=== PATIENT | female | born 1975 | race Caucasian/White ===

== ENCOUNTER 2016-10-19 18:59 | Emergency (ER) | payer SELFPAY ==
--- NOTE | 2016-10-19 19:12 | PHYS DOC ---
Past Medical History Past Medical History: No Pertinent History Past Surgical History: Tubal ligation Alcohol Use: None Drug Use: None Adult General Chief Complaint Chief Complaint: ASTHMA HPI HPI Patient is a 41 year old female presents to the emergency department with a five-day history of asthma exacerbation. She states she is using her albuterol when necessary at home without relief of symptoms. She states she has continued to use tobacco. 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 Review of Systems Review of Systems Constitutional: Denies fever or chills [] Eyes: Denies change in visual acuity, redness, or eye pain [] HENT: Denies nasal congestion or sore throat [] Respiratory: cough or shortness of breath, no wheezing [] Cardiovascular: No additional information not addressed in HPI [] GI: Denies abdominal pain, nausea, vomiting, bloody stools or diarrhea [] : Denies dysuria or hematuria [] Musculoskeletal: Denies back pain or joint pain [] Integument: Denies rash or skin lesions [] Neurologic: Denies headache, focal weakness or sensory changes [] Endocrine: Denies polyuria or polydipsia [] Current Medications Current Medications Current Medications Medications (Trade) Dose Ordered Sig/Jimmie Start Time Stop Time Status Last Admin Dose Admin Albuterol/ Ipratropium (Duoneb) 3 ml 1X ONCE 10/19/16 19:15 10/19/16 19:16 DC 10/19/16 19:22 3 ML Allergies Allergies Allergies Coded Allergies Type Severity Reaction Last Updated Verified No Known Drug Allergies 12/25/13 No Physical Exam Physical Exam Constitutional: Well developed, well nourished, no acute distress, non-toxic appearance. [] HENT: Normocephalic, atraumatic, bilateral external ears normal, oropharynx moist, no oral exudates, nose normal. [] Eyes: PERRLA, EOMI, conjunctiva normal, no discharge. [] Neck: Normal range of motion, no tenderness, supple, no stridor. [] Cardiovascular:Heart rate regular rhythm, no murmur [] Lungs & Thorax: Breath sounds diminished throughout. Inspiratory wheezes, scattered. Abdomen: Bowel sounds normal, soft, no tenderness, no masses, no pulsatile masses. [] Skin: Warm, dry, no erythema, no rash. [] Back: No tenderness, no CVA tenderness. [] Extremities: No tenderness, no cyanosis, no clubbing, ROM intact, no edema. [] Neurologic: Alert and oriented X 3, normal motor function, normal sensory function, no focal deficits noted. [] Current Patient Data Vital Signs Vital Signs Date Time Temp Pulse Resp B/P (MAP) Pulse Ox O2 Delivery O2 Flow Rate FiO2 10/19/16 19:23 97 Room Air 10/19/16 19:22 98.1 155 18 98.1 EKG EKG [] Radiology/Procedures Radiology/Procedures [] Course & Med Decision Making Course & Med Decision Making Pt reports she feels better, no SOA after DuoNeb. Breath Sounds clear to auscultate throughout. Pertinent Labs and Imaging studies reviewed. (See chart for details) [] Dragon Disclaimer Dragon Disclaimer This electronic medical record was generated, in whole or in part, using a voice recognition dictation system. Departure Departure Impression: Primary Impression: Asthma Disposition: HOME, SELF-CARE Condition: STABLE Referrals: NO PCP (PCP) [facility] Patient Instructions: Asthma, Adult Scripts Albuterol Sulfate (PROAIR HFA INHALER) 8.5 Gm Hfa.aer.ad 1 PUFF INH PRN Q6HRS Y for SHORTNESS OF BREATH, #1 INHALER 0 Refills Prov: SHARIF MCKNIGHT APRN 10/19/16 Prednisone (PREDNISONE) 20 Mg Tablet 1 TAB PO DAILY, #5 TAB Prov: SHARIF MCKNIGHT APRN 10/19/16 Problem Qualifiers Primary Impression: Asthma Asthma severity: mild intermittent Asthma complication type: with acute exacerbation Qualified Codes: J45.21 - Mild intermittent asthma with (acute) exacerbation SHARIF MCKNIGHT APRN Oct 19, 2016 19:12
[2016-10-19] MEDS ORDERED: IPRATRPIUM/ALBUTEROL 0.5/2.5MG 3 ML NEBU. NEB ONE (19:15)
[2016-10-19 19:22] VITALS: BP 125/66
[2016-10-19] MEDS ORDERED: PROAIR HFA8.5 GM INH (19:24)
[2016-10-19] MEDS ORDERED: PRED20TA PO (19:24)
== END 2016-10-19 19:58 | disposition home or self-care (01) ==
LOC: ER 18:59
DX: J45.21 Mild intermittent asthma with (acute) exacerbation (principal); F17.200 Nicotine dependence, unspecified, uncomplicated; Z98.51 Tubal ligation status; Z79.899 Other long term (current) drug therapy
CPT/HCPCS: 94640; 99283; J7620

== ENCOUNTER 2016-11-04 18:36 | Emergency (ER) | payer SELFPAY ==
[~2016-11-04] VITALS: Ht 167.6 cm; Wt 63.5 kg
[~2016-11-04 18:36] MED LIST: PRED20TA PO; PROAIR HFA8.5 GM INH
[2016-11-04] MEDS ORDERED: BENZONATATE 100 MG CAPSULE. PO ONE (19:30)
[2016-11-04] MEDS ORDERED: IPRATRPIUM/ALBUTEROL 0.5/2.5MG 3 ML NEBU. NEB ONE (19:30)
[2016-11-04] MEDS ORDERED: DEXAMETHASONE SOD PHOS 20 MG/5 ML VIAL. IM ONE (19:30)
--- NOTE | 2016-11-04 19:34 | PHYS DOC ---
Past Medical History Past Medical History: Asthma Past Surgical History: Tubal ligation Additional Past Surgical Histo: L ANKLE FX Alcohol Use: Occasionally Drug Use: Marijuana Adult General Chief Complaint Chief Complaint: ASTHMA HPI HPI Patient is a 41 year old female with a history of asthma and smoking who presents today complaining of coughing which shortness of breath due to her asthma as well as wheezing that began yesterday. 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 She states they don't like to change the oil they use for deep frying which creates a smoky working environment. Patient states she went to work yesterday and developed asthma symptoms including coughing, shortness of breath and wheezing due to smoke. Patient states she was seen in the ED October 20 which is approximately 2 weeks ago for the same complaint with the same cause. She states she was discharged at home with a short course of prednisone and breathing treatments. Review of Systems Review of Systems Constitutional: Denies fever or chills [] Eyes: Denies change in visual acuity, redness, or eye pain [] HENT: Denies nasal congestion or sore throat [] Respiratory: wheezing,cough and shortness of breath [] Cardiovascular: No additional information not addressed in HPI [] GI: Denies abdominal pain, nausea, vomiting, bloody stools or diarrhea [] : Denies dysuria or hematuria [] Musculoskeletal: Denies back pain or joint pain [] Integument: Denies rash or skin lesions [] Neurologic: Denies headache, focal weakness or sensory changes [] Endocrine: Denies polyuria or polydipsia [] Current Medications Current Medications Current Medications Medications (Trade) Dose Ordered Sig/Jimmie Start Time Stop Time Status Last Admin Dose Admin Albuterol/ Ipratropium (Duoneb) 3 ml 1X ONCE 11/04/16 19:30 11/04/16 19:31 DC 11/04/16 19:30 3 ML Benzonatate (Tessalon Perle) 100 mg 1X ONCE 11/04/16 19:30 11/04/16 19:31 DC 11/04/16 19:55 100 MG Dexamethasone Sodium Phosphate (Decadron) 10 mg 1X ONCE 11/04/16 19:30 11/04/16 19:31 DC 11/04/16 19:56 10 MG Allergies Allergies Allergies Coded Allergies Type Severity Reaction Last Updated Verified No Known Drug Allergies 12/25/13 No Physical Exam Physical Exam Constitutional: Well developed, well nourished, no acute distress, non-toxic appearance. [] HENT: Normocephalic, atraumatic, bilateral external ears normal, oropharynx moist, no oral exudates, nose normal. [] Eyes: PERRLA, EOMI, conjunctiva normal, no discharge. [] Neck: Normal range of motion, no tenderness, supple, no stridor. [] Cardiovascular:Heart rate regular rhythm, no murmur [] Lungs & Thorax: Diffuse wheezing to posterior and anterior lung bases, patient is coughing actively in the ED Abdomen: Bowel sounds normal, soft, no tenderness, no masses, no pulsatile masses. [] Skin: Warm, dry, no erythema, no rash. [] Back: No tenderness, no CVA tenderness. [] Extremities: No tenderness, no cyanosis, no clubbing, ROM intact, no edema. [] Neurologic: Alert and oriented X 3, normal motor function, normal sensory function, no focal deficits noted. [] Psychologic: Affect normal, judgement normal, mood normal. [] Current Patient Data Vital Signs Vital Signs Date Time Temp Pulse Resp B/P (MAP) Pulse Ox O2 Delivery O2 Flow Rate FiO2 11/04/16 19:49 100 Room Air 11/04/16 19:39 139/75 (96) 11/04/16 19:20 98.2 106 20 98.2 EKG EKG [] Radiology/Procedures Radiology/Procedures [] Course & Med Decision Making Course & Med Decision Making Pertinent Labs and Imaging studies reviewed. 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 Patient was in the ED 2 weeks ago for the same complaint. Patient was wheezing and actively coughing on arrival to the ED. She was given and went into treatment prednisone and Tessalon Perles her coughing cleared up and lungs are clear as well she even states she feels much better, chest xray interpreted by Dr. Gilbert was negative for any acute findings. She was discharged with a breathing treatment and a tapered dose of prednisone as well as Tessalon Perles. We recommended smoking cessation. Recommended following up with the primary care doctor in 1-2 weeks. Dragon Disclaimer Dragon Disclaimer This electronic medical record was generated, in whole or in part, using a voice recognition dictation system. Departure Departure Impression: Primary Impression: Asthma exacerbation Additional Impression: Smoking addiction Disposition: 01 HOME, SELF-CARE Condition: STABLE Referrals: NO PCP (PCP) Follow-up with your doctor in 1-2 weeks Patient Instructions: Asthma, Adult, Smoking Cessation Additional Instructions: You were seen for asthma exacerbation. Consider smoking cessation. Use the prescribed medicines as ordered. Follow-up with your doctor in the next 7 days. Come back to the ED symptoms worsen. Scripts Albuterol Sulfate (Proair Respiclick) 90 Mcg Aer.pow.ba 1 PUFF IH PRN Q6HRS Y for SHORTNESS OF BREATH, #1 INHALER Prov: ESTHER ESTRADA APRN 11/04/16 Benzonatate (TESSALON PERLE) 100 Mg Capsule 1 CAP PO TID, #30 CAP Prov: ESTHER ESTRADA APRN 11/04/16 Prednisone (PREDNISONE) 10 Mg Tablet 10 MG PO UD for PREDNISONE TAPER, #39 TAB 0 Refills Take 3 tablets by mouth twice a day for 3 days, then take 2 tablets by mouth twice a day for 3 days, then take 1 tablet by mouth twice a day for 3 days, then take 1 tablet by mouth daily x 3 days, then stop. Prov: ESTHER ESTRADA APRN 11/04/16 Problem Qualifiers ESTHER ESTRADA APRN Nov 04, 2016 19:34
[2016-11-04 19:39] VITALS: BP 139/75
[2016-11-04] MEDS ORDERED: BENZ100C PO (20:21)
[2016-11-04] MEDS ORDERED: PROAIR RESPICL90 MCG IH (20:21)
[2016-11-04] MEDS ORDERED: PRED-220 PO (20:21)
--- NOTE | 2016-11-05 08:49 | RAD ---
Indication: Cough and short of breath for a week. Asthma Technique: Two-view chest radiograph was obtained. Comparison is from December 25, 2013. Findings: The lungs are clear. The cardiopulmonary silhouette is within normal limits. There is no pleural effusion. There are old right rib fractures. Impression: No acute thoracic findings.
== END 2016-11-04 20:22 | disposition home or self-care (01) ==
LOC: ER 18:36
DX: J45.901 Unspecified asthma with (acute) exacerbation (principal); F17.200 Nicotine dependence, unspecified, uncomplicated
CPT/HCPCS: 71020; 94250; 94640; 96372; 99284; J1100; J7620

== ENCOUNTER 2016-11-16 18:33 | Emergency (ER) | payer SELFPAY ==
[~2016-11-16] VITALS: Ht 167.6 cm; Wt 63.5 kg
[~2016-11-16 18:33] MED LIST changes: +BENZ100C PO; +PRED-220 PO; +PROAIR RESPICL90 MCG IH
--- NOTE | 2016-11-16 19:14 | PHYS DOC ---
Past Medical History Past Medical History: Asthma Past Surgical History: Tubal ligation Additional Past Surgical Histo: L ANKLE FX Alcohol Use: Occasionally Drug Use: Marijuana Adult General Chief Complaint Chief Complaint: LOWER EXT PAIN HPI HPI Patient is a 41 year old [female that presents to the emergency department with complaints of anterior thigh cramping for 1 day. She states the discomfort began yesterday. She has no known injury. She states she does not drink a lot of water and has not been drinking water. She does state that she is urinating. Review of Systems Review of Systems Constitutional: Denies fever or chills [] Eyes: Denies change in visual acuity, redness, or eye pain [] HENT: Denies nasal congestion or sore throat [] Respiratory: Denies cough or shortness of breath [] Cardiovascular: No additional information not addressed in HPI [] GI: Denies abdominal pain, nausea, vomiting, bloody stools or diarrhea [] : Denies dysuria or hematuria [] Musculoskeletal: Muscle cramps Integument: Denies rash or skin lesions [] Neurologic: Denies headache, focal weakness or sensory changes [] Endocrine: Denies polyuria or polydipsia [] Current Medications Current Medications Current Medications Medications (Trade) Dose Ordered Sig/Jimmie Start Time Stop Time Status Last Admin Dose Admin Ketorolac Tromethamine (Toradol Im) 60 mg 1X ONCE 11/16/16 20:00 11/16/16 20:01 DC 11/16/16 19:55 60 MG Allergies Allergies Allergies Coded Allergies Type Severity Reaction Last Updated Verified No Known Drug Allergies 12/25/13 No Physical Exam Physical Exam Constitutional: Well developed, well nourished, no acute distress, non-toxic appearance. [] HENT: Normocephalic, atraumatic, bilateral external ears normal, just membranes dry, no oral exudates, nose normal. [] Eyes: PERRLA, EOMI, conjunctiva normal, no discharge. [] Neck: Normal range of motion, no tenderness, supple, no stridor. [] Cardiovascular:Heart rate regular rhythm, no murmur [] Lungs & Thorax: Bilateral breath sounds clear to auscultation [] Abdomen: Bowel sounds normal, soft, no tenderness, no masses, no pulsatile masses. [] Skin: Warm, dry, no erythema, no rash. [] Back: No tenderness, no CVA tenderness. [] Extremities: No tenderness, no cyanosis, no clubbing, ROM intact, no edema, bilateral calves are supple and nontender. Negative Homans sign. [] Neurologic: Alert and oriented X 3, normal motor function, normal sensory function, no focal deficits noted. [] Psychologic: Affect normal, judgement normal, mood normal. [] Current Patient Data Vital Signs Vital Signs Date Time Temp Pulse Resp B/P (MAP) Pulse Ox O2 Delivery O2 Flow Rate FiO2 11/16/16 19:16 127/60 (82) 11/16/16 19:05 98.4 90 18 100 Room Air 98.4 Lab Values Laboratory Tests Test 11/16/16 19:26 11/16/16 19:50 White Blood Count 12.3 x10^3/uL (4.0-11.0) H Red Blood Count 4.70 x10^6/uL (3.50-5.40) Hemoglobin 10.5 g/dL (12.0-15.5) L Hematocrit 33.4 % (36.0-47.0) L Mean Corpuscular Volume 71 fL (79-100) L Mean Corpuscular Hemoglobin 22 pg (25-35) L Mean Corpuscular Hemoglobin Concent 31 g/dL (31-37) Red Cell Distribution Width 20.7 % (11.5-14.5) H Platelet Count 458 x10^3/uL (140-400) H Neutrophils (%) (Auto) 62 % (31-73) Lymphocytes (%) (Auto) 24 % (24-48) Monocytes (%) (Auto) 12 % (0-9) H Eosinophils (%) (Auto) 3 % (0-3) Basophils (%) (Auto) 1 % (0-3) Neutrophils # (Auto) 7.5 x10^3uL (1.8-7.7) Lymphocytes # (Auto) 2.9 x10^3/uL (1.0-4.8) Monocytes # (Auto) 1.4 x10^3/uL (0.0-1.1) H Eosinophils # (Auto) 0.3 x10^3/uL (0.0-0.7) Basophils # (Auto) 0.1 x10^3/uL (0.0-0.2) Platelet Estimate Increased (ADEQUATE) Hypochromasia Mod Microcytosis Mod Sodium Level 135 mmol/L (136-145) L Potassium Level 4.7 mmol/L (3.5-5.1) Chloride Level 99 mmol/L (98-107) Carbon Dioxide Level 28 mmol/L (21-32) Anion Gap 8 (6-14) Blood Urea Nitrogen 8 mg/dL (7-20) Creatinine 0.6 mg/dL (0.6-1.0) Estimated GFR (Cockcroft-Gault) 109.6 BUN/Creatinine Ratio 13 (6-20) Glucose Level 95 mg/dL (70-99) Calcium Level 9.0 mg/dL (8.5-10.1) Total Bilirubin 0.4 mg/dL (0.2-1.0) Aspartate Amino Transferase (AST) 35 U/L (15-37) Alanine Aminotransferase (ALT) 64 U/L (14-59) H Alkaline Phosphatase 72 U/L (46-116) Total Protein 7.0 g/dL (6.4-8.2) Albumin 3.5 g/dL (3.4-5.0) Albumin/Globulin Ratio 1.0 (1.0-1.7) Urine Collection Type Unknown Urine Color Yellow Urine Clarity Clear Urine pH 6.5 Urine Specific [place] 1.015 Urine Protein Negative mg/dL (NEG-TRACE) Urine Glucose (UA) Negative mg/dL (NEG) Urine Ketones (Stick) Negative mg/dL (NEG) Urine Blood Negative (NEG) Urine Nitrite Negative (NEG) Urine Bilirubin Negative (NEG) Urine Urobilinogen Dipstick 0.2 mg/dL (0.2 mg/dL) Urine Leukocyte Esterase Negative (NEG) Urine RBC 0 /HPF (0-2) Urine WBC Occ /HPF (0-4) Urine Squamous Epithelial Cells Many /LPF Urine Bacteria Few /HPF (0-FEW) Urine Mucus Mod /LPF Urine Yeast Present /HPF Laboratory Tests 11/16/16 19:26 Laboratory Tests 11/16/16 19:26 EKG EKG [] Radiology/Procedures Radiology/Procedures [] Course & Med Decision Making Course & Med Decision Making Pertinent Labs and Imaging studies reviewed. (See chart for details) [] Evaluation: Patient reports that she feels significantly better, no complaints of muscle cramping. I did advise her of her lab results. She is advised to increase her fluid intake, stop smoking. Patient verbalizes understanding and is agreeable to plan. She's return to the emergency Department for new symptoms or concerns or worsening of current condition. Shana Disclaimer Dayanaon Disclaimer This electronic medical record was generated, in whole or in part, using a voice recognition dictation system. Departure Departure Impression: Primary Impression: Muscle cramps Additional Impression: Dehydration, mild Disposition: 01 HOME, SELF-CARE Condition: STABLE Referrals: NO PCP (PCP) [facility] Patient Instructions: Dehydration, Adult Additional Instructions: Increase fluid intake, water alternate tolerated. Return to the emergency Department for new symptoms or concerns or worsening of current condition. Problem Qualifiers SHARIF MCKNIGHT BUDGET REPORT CLERK Nov 16, 2016 19:14
[2016-11-16 19:16] VITALS: BP 127/60
[2016-11-16 19:44] LABS: BASO # 0.1 x10^3/uL (0.0-0.2); BASO % 1 % (0-3); EOS % 3 % (0-3); HEMATOCRIT 33.4 % (36.0-47.0); HEMOGLOBIN 10.5 g/dL (12.0-15.5); LYMPH # 2.9 x10^3/uL (1.0-4.8); LYMPH % 24 % (24-48); MEAN CORPUSCULAR HEMOGLOBIN 22 pg (25-35); MEAN CORPUSCULAR HGB CONC 31 g/dL (31-37); MEAN CORPUSCULAR VOLUME 71 fL (79-100); MONO % 12 % (0-9); NEUT % 62 % (31-73); PLATELET COUNT 458 x10^3/uL (140-400); RED CELL DISTRIBUTION WIDTH 20.7 % (11.5-14.5); WHITE BLOOD COUNT 12.3 x10^3/uL (4.0-11.0)
[2016-11-16 19:48] LABS: CREATININE 0.6 mg/dL (0.6-1.0); GFR 109.6; POTASSIUM 4.7 mmol/L (3.5-5.1)
[2016-11-16 19:59] LABS: BILIRUBIN,URINE NEGATIVE (NEG); GLUCOSE,URINE NEGATIVE (NEG); NITRITE,URINE NEGATIVE (NEG); PH,URINE 6.5; PROTEIN,URINE NEGATIVE (NEG-TRACE); UROBILINOGEN,URINE 0.2 mg/dL (0.2 mg/dL)
[2016-11-16] MEDS ORDERED: KETOROLAC TROMETHAMINE 60 MG/2 ML INJ. IM ONE (20:00)
[2016-11-16 20:07] LABS: ALBUMIN 3.5 g/dL (3.4-5.0); TOTAL BILIRUBIN 0.4 mg/dL (0.2-1.0)
[2016-11-16 20:08] LABS: BACTERIA,URINE FEW /HPF (0-FEW); RBC,URINE 0 /HPF (0-2); SQUAMOUS EPITHELIAL CELL,UR MANY /LPF; WBC,URINE OCC /HPF (0-4); YEAST,URINE PRESENT /HPF
[2016-11-16 20:14] LABS: HYPOCHROMIA MOD; MICROCYTOSIS MOD; PLT ESTIMATE INCREASED (ADEQUATE)
== END 2016-11-16 20:52 | disposition home or self-care (01) ==
LOC: ER 18:33
DX: R25.2 Cramp and spasm (principal); E86.0 Dehydration; J45.909 Unspecified asthma, uncomplicated
CPT/HCPCS: 36415; 80053; 81001; 85025; 96372; 99284; J1885

== ENCOUNTER 2016-12-27 14:10 | Inpatient (IN) | payer SELFPAY ==
[~2016-12-27] VITALS: Ht 167.6 cm; Wt 59.2 kg
[2016-12-27] VITALS (11 sets, daily range): BP systolic 108–141; BP diastolic 55–80
--- NOTE | 2016-12-27 14:16 | PHYS DOC ---
Past Medical History Past Medical History: No Pertinent History, Asthma Past Surgical History: Tubal ligation Additional Past Surgical Histo: L ANKLE FX Alcohol Use: Occasionally Drug Use: Marijuana Adult General Chief Complaint Chief Complaint: CHEST PAIN HPI HPI Patient is a 41 year old female who presents with substernal chest pain. She states this started partially hour ago. She states she feels somewhat short of breath and nauseated. She states she's had an episode this over the last couple days since, came and gone. She does smoke marijuana and cigarettes. She states she does have a family history of her mom having a heart attack when she was 36. She denies having any heart attacks in the past. Review of Systems Review of Systems Constitutional: Denies fever or chills [] Eyes: Denies change in visual acuity, redness, or eye pain [] HENT: Denies nasal congestion or sore throat [] Respiratory: Denies cough or shortness of breath [] Cardiovascular: No additional information not addressed in HPI [] GI: Denies abdominal pain, nausea, vomiting, bloody stools or diarrhea [] : Denies dysuria or hematuria [] Musculoskeletal: Denies back pain or joint pain [] Integument: Denies rash or skin lesions [] Neurologic: Denies headache, focal weakness or sensory changes [] Endocrine: Denies polyuria or polydipsia [] Current Medications Current Medications Current Medications Medications (Trade) Dose Ordered Sig/Jimmie Start Time Stop Time Status Last Admin Dose Admin Aspirin (Shari Aspirin) 325 mg 1X ONCE 12/27/16 14:30 12/27/16 14:31 Cancel Heparin Sodium (Porcine) (Heparin Sodium) 4,000 unit 1X ONCE 12/27/16 14:30 12/27/16 14:35 DC 12/27/16 14:38 4,000 UNIT Heparin Sodium/ Dextrose 500 ml @ 0 mls/hr CONT PRN 12/27/16 14:30 Heparin Sodium/ Sodium Chloride 500 ml @ As Directed STK-MED ONCE 12/27/16 14:30 12/27/16 14:31 DC Iodixanol (Visipaque 320) 100 ml STK-MED ONCE 12/27/16 14:30 12/27/16 14:31 DC Lidocaine HCl 20 ml STK-MED ONCE 12/27/16 14:30 12/27/16 14:31 DC Allergies Allergies Allergies Coded Allergies Type Severity Reaction Last Updated Verified No Known Drug Allergies 12/25/13 No Physical Exam Physical Exam Constitutional: Well developed, well nourished, no acute distress, non-toxic appearance. [] HENT: Normocephalic, atraumatic, bilateral external ears normal, oropharynx moist, no oral exudates, nose normal. [] Eyes: PERRLA, EOMI, conjunctiva normal, no discharge. [] Neck: Normal range of motion, no tenderness, supple, no stridor. [] Cardiovascular:Heart rate regular rhythm, no murmur [] Lungs & Thorax: Bilateral breath sounds clear to auscultation [] Abdomen: Bowel sounds normal, soft, no tenderness, no masses, no pulsatile masses. [] Skin: Warm, dry, no erythema, no rash. [] Back: No tenderness, no CVA tenderness. [] Extremities: No tenderness, no cyanosis, no clubbing, ROM intact, no edema. [] Neurologic: Alert and oriented X 3, normal motor function, normal sensory function, no focal deficits noted. [] Psychologic: Affect normal, judgement normal, mood normal. [] Current Patient Data Vital Signs Vital Signs Date Time Temp Pulse Resp B/P (MAP) Pulse Ox O2 Delivery O2 Flow Rate FiO2 12/27/16 14:23 76 20 108/70 (83) 100 Room Air 12/27/16 14:20 97.7 97.7 Lab Values Laboratory Tests Test 12/27/16 14:20 White Blood Count 8.7 x10^3/uL (4.0-11.0) Red Blood Count 4.60 x10^6/uL (3.50-5.40) Hemoglobin 9.9 g/dL (12.0-15.5) L Hematocrit 32.7 % (36.0-47.0) L Mean Corpuscular Volume 71 fL (79-100) L Mean Corpuscular Hemoglobin 22 pg (25-35) L Mean Corpuscular Hemoglobin Concent 30 g/dL (31-37) L Red Cell Distribution Width 19.9 % (11.5-14.5) H Platelet Count 526 x10^3/uL (140-400) H Neutrophils (%) (Auto) 43 % (31-73) Lymphocytes (%) (Auto) 40 % (24-48) Monocytes (%) (Auto) 12 % (0-9) H Eosinophils (%) (Auto) 4 % (0-3) H Basophils (%) (Auto) 2 % (0-3) Neutrophils # (Auto) 3.7 x10^3uL (1.8-7.7) Lymphocytes # (Auto) 3.5 x10^3/uL (1.0-4.8) Monocytes # (Auto) 1.0 x10^3/uL (0.0-1.1) Eosinophils # (Auto) 0.3 x10^3/uL (0.0-0.7) Basophils # (Auto) 0.1 x10^3/uL (0.0-0.2) Platelet Estimate Pending Prothrombin Time 11.8 SEC (11.7-14.0) Prothrombin Time INR 0.9 (0.8-1.1) Sodium Level 139 mmol/L (136-145) Potassium Level 3.6 mmol/L (3.5-5.1) Chloride Level 103 mmol/L (98-107) Carbon Dioxide Level 19 mmol/L (21-32) L Anion Gap 17 (6-14) H Blood Urea Nitrogen 8 mg/dL (7-20) Creatinine 0.7 mg/dL (0.6-1.0) Estimated GFR (Cockcroft-Gault) 91.8 BUN/Creatinine Ratio 11 (6-20) Glucose Level 96 mg/dL (70-99) Calcium Level 8.7 mg/dL (8.5-10.1) Magnesium Level 1.7 mg/dL (1.8-2.4) L Total Bilirubin 0.2 mg/dL (0.2-1.0) Aspartate Amino Transferase (AST) 31 U/L (15-37) Alanine Aminotransferase (ALT) 26 U/L (14-59) Alkaline Phosphatase 108 U/L (46-116) Troponin I Quantitative 0.069 ng/mL (0.000-0.055) Total Protein 7.0 g/dL (6.4-8.2) Albumin 3.3 g/dL (3.4-5.0) L Albumin/Globulin Ratio 0.9 (1.0-1.7) L Laboratory Tests 12/27/16 14:20 Laboratory Tests 12/27/16 14:20 EKG EKG EKG shows sinus rhythm with rate of [address] elevations in 23 aVF and reciprocal changes in lead 1, aVL, V2 V3, normal axis, QTC 4 and 47 ms, as interpreted by me. Radiology/Procedures Radiology/Procedures [] Impressions: Chest pain concerning for STEMI Tobacco abuse Course & Med Decision Making Course & Med Decision Making Pertinent Labs and Imaging studies reviewed. (See chart for details) Patient was activated as a code STEMI and cardiology evaluate the patient and wanted her to go to the [facility]. 4000 units of heparin was started and the patient was given 325 aspirin prior to leaving the ER. Patient is being admitted to in stable critical condition this time. Critical care time 40 minutes of critical care time was used on this patient excluding procedures. Dragon Disclaimer Dragon Disclaimer This electronic medical record was generated, in whole or in part, using a voice recognition dictation system. Departure Departure Impression: Primary Impression: STEMI (ST elevation myocardial infarction) Disposition: ADMITTED INPATIENT Condition: STABLE Referrals: NO PCP (PCP) Problem Qualifiers Primary Impression: STEMI (ST elevation myocardial infarction) Involved coronary artery: unspecified coronary artery Qualified Codes: I21.3 - ST elevation (STEMI) myocardial infarction of unspecified site RADHA CABALLERO MD Dec 27, 2016 14:16
[2016-12-27] MEDS ORDERED: HEPARIN for IV BOLUS 10,000 UNIT/10 ML VIAL. ONE ×2 (14:27→14:52)
[2016-12-27] MEDS ORDERED: LIDOCAINE 2% 20 ML VIAL. ONE (14:30)
[2016-12-27] MEDS ORDERED: HEPARIN 25,000UTS/500ML PREMIX 500 ML IV PRN (14:30)
[2016-12-27] MEDS ORDERED: IODIXANOL 320 MG/ML 100 ML VIAL. ONE (14:30)
[2016-12-27] MEDS ORDERED: ASPIRIN 325 MG TABLET PO ONE ×2 (14:30→15:15)
[2016-12-27] MEDS ORDERED: HEPARIN for IV BOLUS 10,000 UNIT/10 ML VIAL. IV ONE ×2 (14:30→15:30)
[2016-12-27] MEDS ORDERED: fentaNYL PF VIAL 100 MCG/2 ML VIAL ONE (14:33)
[2016-12-27] MEDS ORDERED: MIDAZOLAM HCL/PF 2 MG/2 ML VIAL. ONE (14:33)
[2016-12-27 14:37] LABS: BASO # 0.1 x10^3/uL (0.0-0.2); BASO % 2 % (0-3); EOS % 4 % (0-3); HEMATOCRIT 32.7 % (36.0-47.0); HEMOGLOBIN 9.9 g/dL (12.0-15.5); LYMPH # 3.5 x10^3/uL (1.0-4.8); LYMPH % 40 % (24-48); MEAN CORPUSCULAR HEMOGLOBIN 22 pg (25-35); MEAN CORPUSCULAR HGB CONC 30 g/dL (31-37); MEAN CORPUSCULAR VOLUME 71 fL (79-100); MONO % 12 % (0-9); NEUT % 43 % (31-73); PLATELET COUNT 526 x10^3/uL (140-400); RED CELL DISTRIBUTION WIDTH 19.9 % (11.5-14.5); WHITE BLOOD COUNT 8.7 x10^3/uL (4.0-11.0)
[2016-12-27 14:41] LABS: INR 0.9 (0.8-1.1); PROTHROMBIN TIME PATIENT 11.8 SEC (11.7-14.0)
[2016-12-27 14:46] LABS: CALCIUM 8.7 mg/dL (8.5-10.1); CREATININE 0.7 mg/dL (0.6-1.0); GFR 91.8; POTASSIUM 3.6 mmol/L (3.5-5.1)
--- NOTE | 2016-12-27 14:48 | EKG ---
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
[2016-12-27 14:52] LABS: ALBUMIN 3.3 g/dL (3.4-5.0); ALBUMIN/GLOBULIN RATIO 0.9 (1.0-1.7); MAGNESIUM 1.7 mg/dL (1.8-2.4); TOTAL BILIRUBIN 0.2 mg/dL (0.2-1.0)
[2016-12-27] MEDS ORDERED: VERAPAMIL 5 MG/2 ML VIAL. ONE (14:52)
[2016-12-27] MEDS ORDERED: NITROGLYCERIN 200 MCG/2 ML SYRINGE FOR CATH/VASC LAB. ONE ×2 (14:52→15:24)
--- NOTE | 2016-12-27 14:53 | EKG ---
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
[2016-12-27] MEDS ORDERED: ONDANSETRON PF 4 MG/2 ML VIAL. IV PRN ×2 (15:00→17:00)
[2016-12-27] MEDS ORDERED: ASPIRIN CHEWABLE 81 MG TABLET. PO ONE (15:00)
[2016-12-27] MEDS ORDERED: TIROFIBAN 12.5MG -0.9% NS 250 ML IV ONE (15:09)
[2016-12-27] MEDS ORDERED: PRASUGREL 10 MG TABLET. ONE (15:24)
[2016-12-27] MEDS ORDERED: IODIXANOL 320 MG/ML 100 ML VIAL. IART ONE (15:30)
[2016-12-27] MEDS ORDERED: NITROGLYCERIN 200 MCG/2 ML SYRINGE FOR CATH/VASC LAB. IART ONE (15:30)
[2016-12-27] MEDS ORDERED: MIDAZOLAM HCL/PF 2 MG/2 ML VIAL. IV ONE (15:30)
[2016-12-27] MEDS ORDERED: ANTI-COAG MONITOR BY PHARMACY. MC PRN (15:30)
[2016-12-27] MEDS ORDERED: fentaNYL PF VIAL 100 MCG/2 ML VIAL IV ONE (15:30)
[2016-12-27] MEDS ORDERED: TIROFIBAN 12.5MG -0.9% NS 250 ML IV PRN (15:30)
[2016-12-27] MEDS ORDERED: LIDOCAINE 2% 20 ML VIAL. IJ ONE (15:30)
[2016-12-27] MEDS ORDERED: PRASUGREL 10 MG TABLET. PO ONE (15:30)
--- NOTE | 2016-12-27 16:11 | CONS ---
DATE OF CONSULTATION: 12/27/2016 CARDIOLOGY CONSULTATION DATE OF SERVICE: 12/27/2016 REASON FOR CONSULTATION: ST elevation IL. HISTORY OF PRESENT ILLNESS: The patient is a 41-year-old woman without any significant past medical history who presented to the ER with a worsening chest pain over the course of the last 48 hours. Her chest pain became severe and without any significant alleviating factors. Therefore, she came to the ER. In the Emergency Department, initial EKG revealed ST elevation in the inferior region and therefore STEMI team was appropriately activated. After discussion of the risks and benefits with the patient, it was decided to emergently take the patient to the tag and label cutter. PAST MEDICAL HISTORY: Tobacco abuse. FAMILY HISTORY: Notable for early coronary artery disease in her mother. SOCIAL HISTORY: The patient works at [employer]. She smokes 1 pack a day. Denies any alcohol or illicit drug use except for marijuana. REVIEW OF SYSTEMS: Negative for 10 out of 14 systems reviewed, unless otherwise mentioned above in HPI. ALLERGIES: No known drug allergies. PHYSICAL EXAMINATION: VITAL SIGNS: Afebrile, heart rate 72, blood pressure 123/90, respiratory rate 16, pulse ox 94% on room air. GENERAL: She is alert and oriented, but in moderate distress related to her anxiety and pain in her chest. HEAD AND NECK: Unremarkable. HEART: Regular rate and rhythm without murmurs, rubs or gallops. LUNGS: Clear to auscultation bilaterally. ABDOMEN: Soft, nontender, nondistended. EXTREMITIES: No clubbing, cyanosis or edema. NEUROLOGIC: No focal deficits. MUSCULOSKELETAL: No trauma. LABORATORY DATA: Troponin was minimally elevated at 0.069. Other diagnostic studies are currently pending. EKG reveals inferior ST elevations approximately 2 mm with reciprocal posterior changes. Diagnostic cardiac catheterization revealed an 80% mid RCA stenosis. The left coronary system was unremarkable. The RCA was then stented with a 3.5 x 18 mm bare-metal stent postdilated with a 3.75 mm balloon. IMPRESSION: 1. Transient ST elevation myocardial infarction secondary to mid RCA stenosis. 2. Tobacco abuse. RECOMMENDATIONS: 1. Successful PCI of the mid RCA has been completed. Continue aspirin, prasugrel 10 mg daily. The patient will be provided with a free 30-day card. 2. Risk factor modification. Thank you for this consultation. JERARDO SOARES MD DR: EDWARD/silas JOB#: [id number] / [id number]
[2016-12-27 16:14] LABS: ANISOCYTOSIS SLIGHT; HYPOCHROMIA MOD; MICROCYTOSIS MOD; PLT ESTIMATE INCREASED (ADEQUATE); POIKILOCYTOSIS SLIGHT
[2016-12-27] MEDS ORDERED: PROAIR HFA8.5 GM INH (16:31)
--- NOTE | 2016-12-27 16:38 | CARD ---
APPROVED REPORT Procedure(s) performed: Sedation time: 50 minutes Coronary angiography, left ventriculography and PCI of the RCA. HISTORY The patient is a 41 year-old female with a history of : tobacco history() . INDICATION The indication(s) include : STEMI (>0 to less than or equal to 6 hours). CASE TECHNIQUE During this case, Fluoroscopy and low osmolar contrast were used for imaging. PROCEDURE NARRATIVE The patient was brought electively to the cardiac catheterization lab. A timeout was performed confi rming the patient's name, date of , procedure, and site of procedure. All necessary personnel w ere wearing the appropriate protective equipment and radiation monitor devices. After explaining the risks and benefits of the procedure and alternatives, informed consent was obtained. (See nursing no yaneth for medications administered). The right wrist was sterilely prepped and draped in the usual fas hion. The right wrist was infiltrated with 1 mL of 2% lidocaine for subcutaneous anesthesia. Two at tempts at radial artery access were unsuccessful due to small vessel size. Next, access was obtained via the modified seldinger technique in the [facility]. A 6 F sheath was inserted into the right femoral a rtery without difficulty. Right and left coronary angiography was performed using a 6Fr JR4 and JL4 catheters. HEMODYNAMICS: LVEDP 10 mm Hg No gradient on LV to aortic pullback. LEFT VENTRICULOGRAM: EF 55% Anterobasal: Normal. Anterolateral: Normal Apical: Normal Diaphragmatic: Normal Posterobasal: Grossly normal, with short focal segment akinesis. CORONARY ANGIOGRAPHY: LM is a large caliber very short vessel with normal angiographic appearance. LAD is a large caliber vessel with normal angiographic appearance. D1 is a moderate caliber vessel with normal angiographic appearance. LCx is a moderate caliber non-dominant vessel with normal angiographic appearance. OM1 is a moderate caliber vessel with normal angiographic appearance. RCA is a large caliber dominant vessel with a focal mid 80% stenosis. Post-NTG, there was no signific ant change to the lesion size/severity. RPDA and RPL are moderate caliber vessels with normal angiographic appearance. INTERVENTIONAL TECHNIQUE: Anticoagulation: Heparin/Tirofiban Equipment: Prowater wire, 3.0/12 mm balloon, 3.5/18 mm stent, 3.75mm NC balloon, JR4 guide The lesion was wired easily and angioplastied and stented as noted with above equipment. Left ventricular end diastolic pressure was obtained with a pigtail catheter and pullback was perform ed after left ventriculography. All catheter exchanges and advancements were performed over a guidew diana. At case completion the right femoral sheath was removed and hemostasis was achieved with an Ang ioseal device. The patient received 60mg of Effient at case completion. Conclusion 1. Inferior STEMI 2. Successful PCI with a 3.5/18 bare metal stent, post-dilated with a 3.75mm NC balloon. Recommendations ASA 81mg daily indefinitely Prasugrel 10mg daily Lovastatin therapy travel services professional consult for insurance issues.
--- NOTE | 2016-12-27 16:48 | PDOC1 ---
History and Physical Date of Admission Date of Admission 12/27/16 Identification/Chief Complaint Chief Complaint chest pain Problems: Source Source: Chart review, Patient History of Present Illness History of Present Illness HPI HPI Patient is a 41 year old female who presents with substernal chest pain Today. pt has no pcp, no PMH, not taking home meds, but has very strong FMH with mother and grandparents diagnosed with [place] at young age, smoker. 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 no fever, chills, cough. Had one time chest pain recently not seeking for help. <1PPD, smoke marijuana. drinks at least 3 times per week, 3 beers per time. ER found STEMI, got cath with 1 stent at RCA. NOW pain free. Past Medical History Past Medical History none Past Surgical History Past Surgical History: Tubal Ligation Family History Family History: Coronary Artery Disease, Heart Disease Social History Smoke: <1 pack per day ALCOHOL: heavy Drugs: Marijuana Current Problem List Problem List Problems Medical Problems: (1) STEMI (ST elevation myocardial infarction) Status: Acute Current Medications Current Medications Current Medications Medications (Trade) Dose Ordered Sig/Jimmie Start Time Stop Time Status Last Admin Dose Admin Aspirin (Shari Aspirin) 324 mg 1X ONCE 12/27/16 15:15 12/27/16 15:16 Cancel Aspirin (Children'S Aspirin) 324 mg 1X ONCE 12/27/16 15:00 12/27/16 15:01 DC 12/27/16 14:50 324 MG Fentanyl Citrate (Fentanyl 2ml Vial) 100 mcg 1X ONCE 12/27/16 15:30 12/27/16 15:32 DC 12/27/16 15:43 100 MCG Heparin Sodium (Porcine) (Heparin Sodium) 1,000 unit 1X ONCE 12/27/16 15:30 12/27/16 15:32 DC 12/27/16 15:44 1,000 UNIT Heparin Sodium/ Dextrose 500 ml @ 0 mls/hr CONT PRN 12/27/16 14:30 Heparin Sodium/ Sodium Chloride 1,000 unit 1X ONCE 12/27/16 15:30 12/27/16 15:32 DC 12/27/16 15:42 1,000 UNIT Info (Anti-Coagulation Monitoring By Pharmacy) 1 each PRN DAILY PRN 12/27/16 15:30 Iodixanol (Visipaque 320) 100 ml 1X ONCE 12/27/16 15:30 12/27/16 15:32 DC 12/27/16 15:42 116 ML Lidocaine HCl 20 ml 1X ONCE 12/27/16 15:30 12/27/16 15:32 DC 12/27/16 15:43 18 ML Midazolam HCl (Versed) 2 mg 1X ONCE 12/27/16 15:30 12/27/16 15:32 DC 12/27/16 15:43 2 MG Nitroglycerin (Nitroglycerin) 400 mcg 1X ONCE 12/27/16 15:30 12/27/16 15:32 DC 12/27/16 15:42 400 MCG Ondansetron HCl (Zofran) 4 mg PRN Q8HRS PRN 12/27/16 15:00 12/28/16 14:59 Prasugrel (Effient) 60 mg 1X ONCE 12/27/16 15:30 12/27/16 15:32 DC 12/27/16 15:42 60 MG Tirofiban/Sodium Chloride 250 ml @ 0 mls/hr CONT PRN 12/27/16 15:30 12/27/16 15:41 11.4 MLS/HR Verapamil HCl (Verapamil) 5 mg STK-MED ONCE 12/27/16 14:52 12/27/16 14:53 DC Allergies Allergies Allergies Coded Allergies Type Severity Reaction Last Updated Verified No Known Drug Allergies 12/25/13 No ROS Review of System CONSTITUTIONAL: No fever or chills EYES: No recent changes SKIN: No rash or itching CARDIOVASCULAR + chest pain, no syncope, palpitations, or edema RESPIRATORY: No SOB or cough GASTROINTESTINAL: No nausea, vomiting or abdominal pain NEUROLOGICAL: No headaches or weakness ENDOCRINE: No cold or heat intolerance GENITOURINARY: No urgency or frequency of urination MUSCULOSKELETAL: No back pain or joint pain LYMPHATICS: No enlarged lymph nodes PSYCHIATRIC: No anxiety or depression Physical Exam Physical Exam GEN.: No apparent distress. Alert and oriented. HEENT: Head is normocephalic, atraumatic NECK: Supple. LUNGS: Clear to auscultation. HEART: RRR, S1, S2 present. Peripheral pulses intact ABDOMEN: Soft, nontender. Positive bowel sounds. EXTREMITIES: Without any cyanosis. NEUROLOGIC: Normal speech, normal tone PSYCHIATRIC: Normal affect, normal mood. SKIN: No ulcerations Vitals Vitals Vital Signs Date Time Temp Pulse Resp B/P (MAP) Pulse Ox O2 Delivery O2 Flow Rate FiO2 12/27/16 15:50 75 15 99 Nasal Cannula 2.0 12/27/16 14:33 105/77 (86) 12/27/16 14:20 97.7 97.7 Labs Labs Laboratory Tests Test 12/27/16 14:20 White Blood Count 8.7 x10^3/uL (4.0-11.0) Red Blood Count 4.60 x10^6/uL (3.50-5.40) Hemoglobin 9.9 g/dL (12.0-15.5) Hematocrit 32.7 % (36.0-47.0) Mean Corpuscular Volume 71 fL (79-100) Mean Corpuscular Hemoglobin 22 pg (25-35) Mean Corpuscular Hemoglobin Concent 30 g/dL (31-37) Red Cell Distribution Width 19.9 % (11.5-14.5) Platelet Count 526 x10^3/uL (140-400) Neutrophils (%) (Auto) 43 % (31-73) Lymphocytes (%) (Auto) 40 % (24-48) Monocytes (%) (Auto) 12 % (0-9) Eosinophils (%) (Auto) 4 % (0-3) Basophils (%) (Auto) 2 % (0-3) Neutrophils # (Auto) 3.7 x10^3uL (1.8-7.7) Lymphocytes # (Auto) 3.5 x10^3/uL (1.0-4.8) Monocytes # (Auto) 1.0 x10^3/uL (0.0-1.1) Eosinophils # (Auto) 0.3 x10^3/uL (0.0-0.7) Basophils # (Auto) 0.1 x10^3/uL (0.0-0.2) Platelet Estimate Increased (ADEQUATE) Hypochromasia Mod Poikilocytosis Slight Anisocytosis Slight Microcytosis Mod Prothrombin Time 11.8 SEC (11.7-14.0) Prothromb Time International Ratio 0.9 (0.8-1.1) Sodium Level 139 mmol/L (136-145) Potassium Level 3.6 mmol/L (3.5-5.1) Chloride Level 103 mmol/L (98-107) Carbon Dioxide Level 19 mmol/L (21-32) Anion Gap 17 (6-14) Blood Urea Nitrogen 8 mg/dL (7-20) Creatinine 0.7 mg/dL (0.6-1.0) Estimated GFR (Cockcroft-Gault) 91.8 BUN/Creatinine Ratio 11 (6-20) Glucose Level 96 mg/dL (70-99) Calcium Level 8.7 mg/dL (8.5-10.1) Magnesium Level 1.7 mg/dL (1.8-2.4) Total Bilirubin 0.2 mg/dL (0.2-1.0) Aspartate Amino Transf (AST/SGOT) 31 U/L (15-37) Alanine Aminotransferase (ALT/SGPT) 26 U/L (14-59) Alkaline Phosphatase 108 U/L (46-116) Troponin I Quantitative 0.069 ng/mL (0.000-0.055) Total Protein 7.0 g/dL (6.4-8.2) Albumin 3.3 g/dL (3.4-5.0) Albumin/Globulin Ratio 0.9 (1.0-1.7) Laboratory Tests Test 12/27/16 14:20 White Blood Count 8.7 x10^3/uL (4.0-11.0) Red Blood Count 4.60 x10^6/uL (3.50-5.40) Hemoglobin 9.9 g/dL (12.0-15.5) Hematocrit 32.7 % (36.0-47.0) Mean Corpuscular Volume 71 fL (79-100) Mean Corpuscular Hemoglobin 22 pg (25-35) Mean Corpuscular Hemoglobin Concent 30 g/dL (31-37) Red Cell Distribution Width 19.9 % (11.5-14.5) Platelet Count 526 x10^3/uL (140-400) Neutrophils (%) (Auto) 43 % (31-73) Lymphocytes (%) (Auto) 40 % (24-48) Monocytes (%) (Auto) 12 % (0-9) Eosinophils (%) (Auto) 4 % (0-3) Basophils (%) (Auto) 2 % (0-3) Neutrophils # (Auto) 3.7 x10^3uL (1.8-7.7) Lymphocytes # (Auto) 3.5 x10^3/uL (1.0-4.8) Monocytes # (Auto) 1.0 x10^3/uL (0.0-1.1) Eosinophils # (Auto) 0.3 x10^3/uL (0.0-0.7) Basophils # (Auto) 0.1 x10^3/uL (0.0-0.2) Platelet Estimate Increased (ADEQUATE) Hypochromasia Mod Poikilocytosis Slight Anisocytosis Slight Microcytosis Mod Prothrombin Time 11.8 SEC (11.7-14.0) Prothromb Time International Ratio 0.9 (0.8-1.1) Sodium Level 139 mmol/L (136-145) Potassium Level 3.6 mmol/L (3.5-5.1) Chloride Level 103 mmol/L (98-107) Carbon Dioxide Level 19 mmol/L (21-32) Anion Gap 17 (6-14) Blood Urea Nitrogen 8 mg/dL (7-20) Creatinine 0.7 mg/dL (0.6-1.0) Estimated GFR (Cockcroft-Gault) 91.8 BUN/Creatinine Ratio 11 (6-20) Glucose Level 96 mg/dL (70-99) Calcium Level 8.7 mg/dL (8.5-10.1) Magnesium Level 1.7 mg/dL (1.8-2.4) Total Bilirubin 0.2 mg/dL (0.2-1.0) Aspartate Amino Transf (AST/SGOT) 31 U/L (15-37) Alanine Aminotransferase (ALT/SGPT) 26 U/L (14-59) Alkaline Phosphatase 108 U/L (46-116) Troponin I Quantitative 0.069 ng/mL (0.000-0.055) Total Protein 7.0 g/dL (6.4-8.2) Albumin 3.3 g/dL (3.4-5.0) Albumin/Globulin Ratio 0.9 (1.0-1.7) VTE Prophylaxis Ordered VTE Prophylaxis Devices: Yes VTE Pharmacological Prophylaxi: Yes Assessment/Plan Assessment/Plan chest pain, STEMI, post Cath ,1 stent at RCA tobaccoism alcoholism drug abuse with marijuana microcytic anemia mild low albumin at 3.3 plan: fu with card, will cont asa, plavix or effient tmr HR, BP lower side, maybe low dose BB check tsh, lipid panel, echo anemia work up dvt ppx tmre educated quit smoking and drinking and drug abuse. talked to family YA NIXON MD Dec 27, 2016 16:48
[2016-12-27] MEDS ORDERED: traMADol 50 MG TABLET PO PRN (17:00)
[2016-12-27] MEDS ORDERED: NON FORMULARY ITEM (Albuterol Sulfate (Proair Hfa Inhaler) 1 PUFF) INH PRN (17:00)
[2016-12-27] MEDS ORDERED: MORPHINE SULFATE 2 MG/ML DISP.SYRIN. IV PRN (17:00)
[2016-12-27] MEDS ORDERED: ACETAMINOPHEN 325 MG TABLET. PO PRN (17:00)
[2016-12-27] MEDS ORDERED: ALBUTEROL SULFATE 2.5 MG/3 ML NEBU. NEB PRN (17:00)
[2016-12-27] MEDS ORDERED: DOCUSATE SODIUM 100 MG CAPSULE. PO PRN (17:00)
[2016-12-27] MEDS ORDERED: hydrALAZINE 20 MG/ML VIAL. IVP PRN (17:00)
[2016-12-28 03:20] VITALS: BP 144/68
[2016-12-28 04:23] LABS: BASO # 0.1 x10^3/uL (0.0-0.2); BASO % 1 % (0-3); EOS % 3 % (0-3); HEMATOCRIT 31.2 % (36.0-47.0); HEMOGLOBIN 9.3 g/dL (12.0-15.5); LYMPH # 3.2 x10^3/uL (1.0-4.8); LYMPH % 27 % (24-48); MEAN CORPUSCULAR HEMOGLOBIN 21 pg (25-35); MEAN CORPUSCULAR HGB CONC 30 g/dL (31-37); MEAN CORPUSCULAR VOLUME 72 fL (79-100); MONO % 9 % (0-9); NEUT % 60 % (31-73); PLATELET COUNT 439 x10^3/uL (140-400); RED BLOOD COUNT 4.34 x10^6/uL (3.50-5.40); RED CELL DISTRIBUTION WIDTH 19.7 % (11.5-14.5); WHITE BLOOD COUNT 11.9 x10^3/uL (4.0-11.0)
[2016-12-28 04:48] LABS: % SAT IRON 5 % (15-34); CALCIUM 8.5 mg/dL (8.5-10.1); CREATININE 0.6 mg/dL (0.6-1.0); GFR 109.6; IRON,SERUM 19 ug/dL (50-170); POTASSIUM 3.9 mmol/L (3.5-5.1)
[2016-12-28 05:26] LABS: CHOLESTEROL/HDL RATIO 3.9
[2016-12-28 06:44] LABS: FOLATE 8.81 ng/ml (3.2-20.0)
[2016-12-28 07:20] VITALS: BP 140/75
[2016-12-28] MEDS ORDERED: CLOPIDOGREL BISULFATE 75 MG TABLET PO ONE (09:45)
[2016-12-28] MEDS ORDERED: ASPIRIN ENTERIC COATED 81 MG TABLET.DR. PO SCH (10:00)
[2016-12-28] MEDS ORDERED: PRASUGREL 10 MG TABLET. PO SCH (10:00)
[2016-12-28] MEDS ORDERED: METOPROLOL TART IMMED RELEASE 25 MG TABLET. PO SCH (11:00)
[2016-12-28] MEDS ORDERED: CLOPIDOGREL BISULFATE 75 MG TABLET PO SCH (11:00)
[2016-12-28 11:43] VITALS: BP 137/76
[2016-12-28] MEDS ORDERED: ASPI-612 PO (12:07)
[2016-12-28] MEDS ORDERED: CLOP75TA PO (12:07)
[2016-12-28] MEDS ORDERED: LISI-338 PO (12:14)
[2016-12-28] MEDS ORDERED: LISINOPRIL 5 MG TABLET. PO SCH (12:30)
--- NOTE | 2016-12-28 12:44 | PDOC ---
FREDY SCOTT DRUM DRIER 12/28/16 1244: CARDIO Progress Notes Date and Time Date of Service 12/28/2016 Time of Evaluation 1210 Subjective Subjective: No Chest Pain, No shortness of breath, No Palpitations, No Dizziness Vitals Vitals Vital Signs Date Time Temp Pulse Resp B/P (MAP) Pulse Ox O2 Delivery O2 Flow Rate FiO2 12/28/16 11:43 97.9 75 18 137/76 (96) 96 Room Air 97.9 12/27/16 15:50 2.0 Weight Weight [ ] Laboratory Labs Laboratory Tests Test 12/27/16 14:20 12/27/16 20:55 12/28/16 04:02 White Blood Count 8.7 x10^3/uL (4.0-11.0) 11.9 x10^3/uL (4.0-11.0) Red Blood Count 4.60 x10^6/uL (3.50-5.40) 4.34 x10^6/uL (3.50-5.40) Hemoglobin 9.9 g/dL (12.0-15.5) 9.3 g/dL (12.0-15.5) Hematocrit 32.7 % (36.0-47.0) 31.2 % (36.0-47.0) Mean Corpuscular Volume 71 fL (79-100) 72 fL (79-100) Mean Corpuscular Hemoglobin 22 pg (25-35) 21 pg (25-35) Mean Corpuscular Hemoglobin Concent 30 g/dL (31-37) 30 g/dL (31-37) Red Cell Distribution Width 19.9 % (11.5-14.5) 19.7 % (11.5-14.5) Platelet Count 526 x10^3/uL (140-400) 439 x10^3/uL (140-400) Neutrophils (%) (Auto) 43 % (31-73) 60 % (31-73) Lymphocytes (%) (Auto) 40 % (24-48) 27 % (24-48) Monocytes (%) (Auto) 12 % (0-9) 9 % (0-9) Eosinophils (%) (Auto) 4 % (0-3) 3 % (0-3) Basophils (%) (Auto) 2 % (0-3) 1 % (0-3) Neutrophils # (Auto) 3.7 x10^3uL (1.8-7.7) 7.2 x10^3uL (1.8-7.7) Lymphocytes # (Auto) 3.5 x10^3/uL (1.0-4.8) 3.2 x10^3/uL (1.0-4.8) Monocytes # (Auto) 1.0 x10^3/uL (0.0-1.1) 1.0 x10^3/uL (0.0-1.1) Eosinophils # (Auto) 0.3 x10^3/uL (0.0-0.7) 0.4 x10^3/uL (0.0-0.7) Basophils # (Auto) 0.1 x10^3/uL (0.0-0.2) 0.1 x10^3/uL (0.0-0.2) Platelet Estimate Increased (ADEQUATE) Hypochromasia Mod Poikilocytosis Slight Anisocytosis Slight Microcytosis Mod Prothrombin Time 11.8 SEC (11.7-14.0) Prothromb Time International Ratio 0.9 (0.8-1.1) Sodium Level 139 mmol/L (136-145) 138 mmol/L (136-145) Potassium Level 3.6 mmol/L (3.5-5.1) 3.9 mmol/L (3.5-5.1) Chloride Level 103 mmol/L (98-107) 103 mmol/L (98-107) Carbon Dioxide Level 19 mmol/L (21-32) 26 mmol/L (21-32) Anion Gap 17 (6-14) 9 (6-14) Blood Urea Nitrogen 8 mg/dL (7-20) 7 mg/dL (7-20) Creatinine 0.7 mg/dL (0.6-1.0) 0.6 mg/dL (0.6-1.0) Estimated GFR (Cockcroft-Gault) 91.8 109.6 BUN/Creatinine Ratio 11 (6-20) Glucose Level 96 mg/dL (70-99) 91 mg/dL (70-99) Calcium Level 8.7 mg/dL (8.5-10.1) 8.5 mg/dL (8.5-10.1) Magnesium Level 1.7 mg/dL (1.8-2.4) Total Bilirubin 0.2 mg/dL (0.2-1.0) Aspartate Amino Transf (AST/SGOT) 31 U/L (15-37) Alanine Aminotransferase (ALT/SGPT) 26 U/L (14-59) Alkaline Phosphatase 108 U/L (46-116) Troponin I Quantitative 0.069 ng/mL (0.000-0.055) 1.894 ng/mL (0.000-0.055) 6.150 ng/mL (0.000-0.055) Total Protein 7.0 g/dL (6.4-8.2) Albumin 3.3 g/dL (3.4-5.0) Albumin/Globulin Ratio 0.9 (1.0-1.7) Iron Level 19 ug/dL (50-170) Total Iron Binding Capacity 415 ug/dL (250-450) Iron Saturation 5 % (15-34) Ferritin 10 ng/mL (8-252) Triglycerides Level 83 mg/dL (0-150) Cholesterol Level 188 mg/dL (0-200) LDL Cholesterol, Calculated 123 mg/dL (0-100) VLDL Cholesterol, Calculated 17 mg/dL (0-40) Non-HDL Cholesterol Calculated 140 mg/dL (0-129) HDL Cholesterol 48 mg/dL (40-60) Cholesterol/HDL Ratio 3.9 Vitamin B12 Level 454 pg/mL (247-911) Serum Folate 8.81 ng/ml (3.2-20.0) Thyroid Stimulating Hormone (TSH) 6.210 uIU/mL (0.358-3.74) Physical Exam HEENT: Neck Supple W Full Motion Chest: Symmetric LUNGS: Clear to Auscultation Heart: S1S2, RRR (SR/SB) Abdomen: Soft N/T Extremities: No Calf Tenderness Neurology: alert, oriented, follow commands Other Exams right groin arteriotomy site intact now selling or redness, neurovascular status intact to bilateral LE Assessment Assessment 1. Inferior STEMI: S/P PCI/BMS to RCA. EF 55% 2. Subclinical hypothyroidism 3. Microcytic hypochromic anemia 4. Tobaccoism Recommendations 1. Unable to afford effient. Plavix loading dose then home with DAPT 81 mg ASA and plavix. Good Rx card given 2. Discussed compliance with meds and if financially able to follow up in office in 4 weeks 3. Home with lisinopril, lovastatin. Unable to place on BB currently due to episodes of bradycardia. BP is controlled 4. Would encourage cardiac rehab if able to afford 5. Encouraged home BP monitoring and to call our office if above or below parameters. 6. Social service was consulted regarding financial constraints. 7. Possible home late this afternoon. 8. TTE. smoking cessation JERARDO SOARES MD 12/28/16 1704: CARDIO Progress Notes Plan Plan Pt. seen and examined. Agree with above [employer] note. Continue ASA, plavix and lovastatin Ok to DC from CV perspective. FREDY SCOTT APRN Dec 28, 2016 12:44 JERARDO SOARES MD Dec 28, 2016 17:04
--- NOTE | 2016-12-28 13:52 | PDOC3 ---
Discharge Summary [facility] Date of Admission: Dec 27, 2016 Discharge Date: Dec 28, 2016 Admitting Diagnosis chest pain, STEMI, post Cath ,1 stent at RCA tobaccoism alcoholism drug abuse with marijuana microcytic anemia mild low albumin at 3.3 Problems: Final Diagnosis CONSULTS card Procedures cath Brief Hospital Course Patient is a 41 year old female who presents with substernal chest pain Today. pt has no pcp, no PMH, not taking home meds, but has very strong FMH with mother and grandparents diagnosed with [place] at young age, smoker. 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 no fever, chills, cough. Had one time chest pain recently not seeking for help. <1PPD, smoke marijuana. drinks at least 3 times per week, 3 beers per time. ER found STEMI, got cath with 1 stent at RCA. NOW pain free. pt got cath and 1 stent placement at RCA. chest pain free. dc home with asa, plavix, lovastatin, lisinopril. cannot give BB given lower side HR. dc time 35min GEN.: No apparent distress. Alert and oriented. HEENT: Head is normocephalic, atraumatic NECK: Supple. LUNGS: Clear to auscultation. HEART: RRR, S1, S2 present. Peripheral pulses intact ABDOMEN: Soft, nontender. Positive bowel sounds. EXTREMITIES: Without any cyanosis. NEUROLOGIC: Normal speech, normal tone PSYCHIATRIC: Normal affect, normal mood. SKIN: No ulcerations Patient History: FH: COPD (chronic obstructive pulmonary disease) 32 MOTHER 33 FATHER FH: asthma 33 FATHER FH: cholecystectomy G8 SISTER FH: emphysema 33 FATHER FH: heart attack 32 MOTHER 33 FATHER FH: hypertension 32 MOTHER 33 FATHER FH: obesity 32 MOTHER FH: suicide 33 FATHER Problems: Disposition home CONDITION AT DISCHARGE: Improved Diet cardiac Scheduled Aspirin (Aspirin Ec), 81 MG PO DAILYWBKFT Clopidogrel Bisulfate (Clopidogrel), 75 MG PO DAILYWBKFT Lisinopril (Lisinopril), 5 MG PO DAILY Scheduled PRN Albuterol Sulfate (Proair Hfa Inhaler), 1 PUFF INH PRN Q6HRS PRN for SHORTNESS OF BREATH, (Reported) Discontinued Medications Albuterol Sulfate (Proair Hfa Inhaler), 1 PUFF INH PRN Q6HRS PRN for SHORTNESS OF BREATH Discontinued Reason: Not taking Albuterol Sulfate (Proair Respiclick), 1 PUFF IH PRN Q6HRS PRN for SHORTNESS OF BREATH Discontinued Reason: Not taking Benzonatate (Tessalon Perle), 1 CAP PO TID Discontinued Reason: Not taking Prednisone (Prednisone), 1 TAB PO DAILY Discontinued Reason: Not taking Prednisone (Prednisone), 10 MG PO UD Discontinued Reason: Not taking Follow Up card in 2 weeks YA NIXON MD Dec 28, 2016 13:52
[2016-12-28 15:48] VITALS: BP 110/54
--- NOTE | 2016-12-28 16:19 | CARD ---
APPROVED REPORT EXAM: Two-dimensional and M-mode echocardiogram with Doppler and color Doppler. Other Information Quality : Average INDICATION STEMI 2D DIMENSIONS RVDd2.9 (2.9-3.5cm)Left Atrium(2D)2.5 (1.6-4.0cm) IVSd0.8 (0.7-1.1cm)Aortic Root(2D)2.6 (2.0-3.7cm) LVDd4.3 (3.9-5.9cm)LVOT Diameter2.1 (1.8-2.4cm) PWd1.0 (0.7-1.1cm)LVDs2.8 (2.5-4.0cm) SV51.8 mlLVEF(%)55.0 (>50%) Aortic Valve AoV Peak Clinton.128.3cm/sAoV VTI22.9cm AO Peak GR.6.6mmHgLVOT Peak Clinton.101.0cm/s LVOT VTI 22.73cmAO Mean GR.4mmHg JONATAN (VMAX)2.50bq2LOG (VTI)3.37cm2 Mitral Valve MV E Faahhvjp39.0cm/sMV DECEL ENEU222kc MV A Ynrekopd68.7cm/sMV E Mean Gr.1mmHg MV VIP35qqH/A Ratio1.3 MV A [id number] (PHT)2.98cm2 TDI E/Lateral E'5.2E/Medial E'5.8 Pulmonary Valve PV Peak Avxlybkn80.4cm/sPV Peak Grad.3mmHg RVOT VTI17.3cm Tricuspid Valve TR P. Esdmbupw778rc/sTR Peak Gr.15mmHg Pulmonary Vein S1 Lriujcvc95.0cm/sD2 Fekunfab75.8cm/s LEFT VENTRICLE The left ventricle is normal size. There is normal left ventricular wall thickness. Basal inferior wa ll hypokinesis. The ejection fraction is estimated at 55%. There is normal LV segmental wall motion. The left ventricular diastolic function and filling is normal for age. RIGHT VENTRICLE The right ventricle is normal size. There is normal right ventricular wall thickness. The right ventr icular systolic function is normal. ATRIA The left atrium size is normal. The right atrium size is normal. The interatrial septum is intact wit h no evidence for an atrial septal defect or patent foramen ovale as noted on 2-D or Doppler imaging. AORTIC VALVE The aortic valve is normal in structure and function. Doppler and Color Flow revealed trace to mild a ortic regurgitation. There is no significant aortic valvular stenosis. MITRAL VALVE The mitral valve is normal in structure and function. Doppler and Color Flow revealed no mitral valve regurgitation noted. TRICUSPID VALVE The tricuspid valve is normal in structure and function. Doppler and Color Flow revealed trace tricus pid regurgitation. The PA pressure was estimated at 18 mmHg. PULMONIC VALVE The pulmonary valve is normal in structure and function. Doppler and Color Flow revealed no pulmonic valvular regurgitation. GREAT VESSELS The aortic root is normal in size. Normal pulmonary venous flow (Doppler). The IVC is normal in size and collapses >50% with inspiration. PERICARDIAL EFFUSION There is no pleural effusion. There is no evidence of significant pericardial effusion. Critical Notification Critical Value: Yes <Conclusion> Basal inferior wall hypokinesis. The ejection fraction is estimated at 55%. There is normal LV segmental wall motion. Trace to mild aortic regurgitation. Trace tricuspid regurgitation. The PA pressure was estimated at 18 mmHg. There is no evidence of significant pericardial effusion.
[2016-12-28] MEDS ORDERED: LOVA40TA2 PO (16:46)
[2016-12-28] MEDS ORDERED: ATORVASTATIN CALCIUM 10 MG TABLET. PO SCH (21:00)
[2016-12-28] MEDS ORDERED: ATORVASTATIN CALCIUM 40 MG TABLET. PO SCH (21:00)
== END 2016-12-28 18:45 | disposition home or self-care (01) | DRG 249 ==
LOC: ER 14:10 → 2 NORTH 14:30
PROVIDERS: ADMIT Internal Medicine; ATTEND Internal Medicine
PROC: B2111ZZ Fluoroscopy of Multiple Coronary Arteries using Low Osmolar Contrast (ICD-10-PCS; principal; 2016-12-27)
PROC: 02703DZ Dilation of Coronary Artery, One Artery with Intraluminal Device, Percutaneous Approach (ICD-10-PCS; 2016-12-27)
PROC: B2151ZZ Fluoroscopy of Left Heart using Low Osmolar Contrast (ICD-10-PCS; 2016-12-27)
PROC: 4A023N7 Measurement of Cardiac Sampling and Pressure, Left Heart, Percutaneous Approach (ICD-10-PCS; 2016-12-27)
DX: I21.19 ST elevation (STEMI) myocardial infarction involving other coronary artery of inferior wall (principal); E03.9 Hypothyroidism, unspecified; D50.9 Iron deficiency anemia, unspecified; F10.20 Alcohol dependence, uncomplicated; F17.210 Nicotine dependence, cigarettes, uncomplicated; F12.10 Cannabis abuse, uncomplicated; I25.10 Atherosclerotic heart disease of native coronary artery without angina pectoris; Z82.49 Family history of ischemic heart disease and other diseases of the circulatory system; Z98.61 Coronary angioplasty status; Z98.51 Tubal ligation status; Z84.89 Family history of other specified conditions; Z83.6 Family history of other diseases of the respiratory system; Z81.8 Family history of other mental and behavioral disorders
CPT/HCPCS: 36415; 80048; 80053; 80061; 82607; 82728; 82746; 83540; 83550; 83735; 84443; 84484; 85025; 85610; 92928; 92941; 93005; 93306; 93458; 94250; 96374; 99152; 99153; C1725; C1769; C1771; C1876; C1887; C1892; G0269; J1644; J2250; J3010; J3490; 99291-25; J2001; J3246

== ENCOUNTER 2019-10-14 23:50 | Inpatient (IN) | payer MEDICAID ==
[~2019-10-14] VITALS: Ht 167.6 cm; Wt 64.3 kg
[~2019-10-14 23:50] MED LIST changes: +ALBU2.5V8 INH; +ASPI-886 PO; +CLOP75TA PO; +LISI-338 PO; +LOVA40TA2 PO; -PROAIR HFA8.5 GM INH
[2019-10-15] VITALS (17 sets, daily range): BP systolic 82–124; BP diastolic 34–78
[2019-10-15] MEDS ORDERED: ONDANSETRON PF 4 MG/2 ML VIAL. IV PRN (00:15)
[2019-10-15] MEDS ORDERED: ONDANSETRON PF 4 MG/2 ML VIAL. IV ONE (00:15)
[2019-10-15] MEDS ORDERED: HYDROmorphone 2 MG/ML VIAL IVP ONE (00:15)
[2019-10-15 00:19] LABS: BASO % 0 % (0-3); EOS # 0.3 x10^3/uL (0.0-0.7); EOS % 2 % (0-3); HEMATOCRIT 29.9 % (36.0-47.0); HEMOGLOBIN 10.1 g/dL (12.0-15.5); LYMPH # 2.5 x10^3/uL (1.0-4.8); LYMPH % 18 % (24-48); MEAN CORPUSCULAR HEMOGLOBIN 32 pg (25-35); MEAN CORPUSCULAR HGB CONC 34 g/dL (31-37); MEAN CORPUSCULAR VOLUME 93 fL (79-100); MONO # 1.3 x10^3/uL (0.0-1.1); MONO % 9 % (0-9); NEUT # 9.6 x10^3/uL (1.8-7.7); NEUT % 70 % (31-73); PLATELET COUNT 380 x10^3/uL (140-400); RED BLOOD COUNT 3.21 x10^6/uL (3.50-5.40); RED CELL DISTRIBUTION WIDTH 18.4 % (11.5-14.5); WHITE BLOOD COUNT 13.7 x10^3/uL (4.0-11.0)
[2019-10-15 01:52] LABS: CALCIUM 7.4 mg/dL (8.5-10.1); CREATININE 0.9 mg/dL (0.6-1.0); POTASSIUM 3.2 mmol/L (3.5-5.1)
[2019-10-15 01:58] LABS: ALBUMIN 1.8 g/dL (3.4-5.0); ALBUMIN/GLOBULIN RATIO 0.4 (1.0-1.7); TOTAL BILIRUBIN 2.3 mg/dL (0.2-1.0); TOTAL PROTEIN 6.2 g/dL (6.4-8.2)
[2019-10-15] MEDS: fentaNYL PF VIAL 100 MCG/2 ML VIAL IV PRN ×9 (02:05→23:08)
[2019-10-15] MEDS: PIPERACILLIN/TAZOBACTAM 3.375 GM in IV NORMAL SALINE 50ML 50 ML IV SCH ×5 (02:08→22:50)
--- NOTE | 2019-10-15 02:08 | PHYS DOC ---
Past Medical History Past Medical History: Asthma, Liver Disease Past Surgical History: Tubal ligation Additional Past Surgical Histo: L ANKLE Smoking Status: Current Every Day Smoker Alcohol Use: Sober Additional Information: PATIENT STATES SHE HASN'T DRANK IN A MONTH Drug Use: Marijuana General Adult EDM: Chief Complaint: ABDOMINAL PAIN HPI: HPI: Patient is a 43-year-old very unfortunate female with alcoholic hepatitis and subsequent liver failure with cirrhosis. She had a paracentesis about 3 weeks ago. She states she has been having these procedures routinely. She states her abdomen is quite swollen now with an incredible amount of pain. She states the pain is diffuse unrelenting. She has had no nausea or vomiting but she states she does not have any appetite. She denies any melena hematemesis or hematochezia. Nothing at home is helping the pain. She denies any fever chills or sweats. [] Review of Systems: Review of Systems: Constitutional: Denies fever or chills. [] Eyes: Denies change in visual acuity. [] HENT: Denies nasal congestion or sore throat. [] Respiratory: Denies cough or shortness of breath. [] Cardiovascular: Denies chest pain or edema. [] GI: Reports abdominal swelling and pain [] : Denies dysuria. [] Musculoskeletal: Denies back pain or joint pain. [] Integument: Denies rash. [] Neurologic: Denies headache, focal weakness or sensory changes. [] Endocrine: Denies polyuria or polydipsia. [] Lymphatic: Denies swollen glands. [] Psychiatric: Reports anxiety. [] Heart Score: Risk Factors: Risk Factors: DM, Current or recent (<one month) smoker, HTN, HLP, family history of CAD, obesity. Risk Scores: Score 0 - 3: 2.5% MACE over next 6 weeks - Discharge Home Score 4 - 6: 20.3% MACE over next 6 weeks - Admit for Clinical Observation Score 7 - 10: 72.7% MACE over next 6 weeks - Early Invasive Strategies Allergies: Allergies: Allergies Coded Allergies Type Severity Reaction Last Updated Verified No Known Drug Allergies 12/25/13 No Physical Exam: PE: Constitutional: Well developed, well nourished, moderate distress, non-toxic appearance. [] HENT: Normocephalic, atraumatic, bilateral external ears normal, oropharynx moist, no oral exudates, nose normal. [] Eyes: PERRLA, EOMI, conjunctiva normal, no discharge. [] Neck: Normal range of motion, no tenderness, supple, no stridor. [] Cardiovascular:Heart rate regular rhythm, no murmur [] Lungs & Thorax: Bilateral breath sounds clear to auscultation [] Abdomen: Diffusely tender to palp markedly swollen [] Skin: Warm, dry, no erythema, no rash. [] Back: No tenderness, no CVA tenderness. [] Extremities: No tenderness, no cyanosis, no clubbing, ROM intact, no edema. [] Neurologic: Alert and oriented X 3, normal motor function, normal sensory function, no focal deficits noted. [] Psychologic: Affect normal, judgement normal, mood normal. [] Current Patient Data: Labs: Laboratory Tests Test 10/15/19 00:12 10/15/19 01:35 White Blood Count 13.7 x10^3/uL (4.0-11.0) H Red Blood Count 3.21 x10^6/uL (3.50-5.40) L Hemoglobin 10.1 g/dL (12.0-15.5) L Hematocrit 29.9 % (36.0-47.0) L Mean Corpuscular Volume 93 fL (79-100) Mean Corpuscular Hemoglobin 32 pg (25-35) Mean Corpuscular Hemoglobin Concent 34 g/dL (31-37) Red Cell Distribution Width 18.4 % (11.5-14.5) H Platelet Count 380 x10^3/uL (140-400) Neutrophils (%) (Auto) 70 % (31-73) Lymphocytes (%) (Auto) 18 % (24-48) L Monocytes (%) (Auto) 9 % (0-9) Eosinophils (%) (Auto) 2 % (0-3) Basophils (%) (Auto) 0 % (0-3) Neutrophils # (Auto) 9.6 x10^3/uL (1.8-7.7) H Lymphocytes # (Auto) 2.5 x10^3/uL (1.0-4.8) Monocytes # (Auto) 1.3 x10^3/uL (0.0-1.1) H Eosinophils # (Auto) 0.3 x10^3/uL (0.0-0.7) Basophils # (Auto) 0.0 x10^3/uL (0.0-0.2) Sodium Level 135 mmol/L (136-145) L Potassium Level 3.2 mmol/L (3.5-5.1) L Chloride Level 100 mmol/L (98-107) Carbon Dioxide Level 29 mmol/L (21-32) Anion Gap 6 (6-14) Blood Urea Nitrogen 7 mg/dL (7-20) Creatinine 0.9 mg/dL (0.6-1.0) Estimated GFR (Cockcroft-Gault) 68.0 BUN/Creatinine Ratio 8 (6-20) Glucose Level 104 mg/dL (70-99) H Calcium Level 7.4 mg/dL (8.5-10.1) L Total Bilirubin 2.3 mg/dL (0.2-1.0) H Aspartate Amino Transferase (AST) 54 U/L (15-37) H Alanine Aminotransferase (ALT) 11 U/L (14-59) L Alkaline Phosphatase 252 U/L (46-116) H Ammonia 59 mcmol/L (11-34) H Total Protein 6.2 g/dL (6.4-8.2) L Albumin 1.8 g/dL (3.4-5.0) L Albumin/Globulin Ratio 0.4 (1.0-1.7) L Lipase 155 U/L (73-393) Laboratory Tests 10/15/19 00:12 Laboratory Tests 10/15/19 01:35 Vital Signs: Vital Signs Date Time Temp Pulse Resp B/P (MAP) Pulse Ox O2 Delivery O2 Flow Rate FiO2 10/15/19 00:30 24 100 Room Air 10/14/19 23:54 98.6 121 105/64 (78) 98.6 EKG: EKG: [] Radiology/Procedures: Radiology/Procedures: [] Course & Med Decision Making: Course & Med Decision Making Pertinent Labs and Imaging studies reviewed. (See chart for details) [ED course: Evaluation reveals a 43-year-old female with alcoholic liver failure and cirrhosis who has what appears to be massive ascites at this point. She is diffusely tender no fever but she does have a white count. She was given IV pain medicine as well as Zosyn being ordered. I will go ahead and admit her to the hospitalist for pain control and she will need a paracentesis.] Shana Disclaimer: Shana Disclaimer: This electronic medical record was generated, in whole or in part, using a voice recognition dictation system. Departure Departure Impression: Primary Impression: Ascites due to alcoholic cirrhosis Disposition: ADMITTED INPATIENT Admitting Physician: NATALIA Condition: GUARDED Referrals: NO PCP (PCP) Justicifation of Admission Dx: Justifications for Admission: Justification of Admission Dx: Yes Comments: Cirrhosis JAYDEN ERWIN DO Oct 15, 2019 02:08
[2019-10-15 03:34] LABS: CLARITY,URINE TURBID; COLOR,URINE ORANGE
[2019-10-15 03:43] LABS: SQUAMOUS EPITHELIAL CELL,UR FEW /LPF
[2019-10-15 03:47] LABS: AMORPHOUS SEDIMENT,UR PRESENT /HPF; BACTERIA,URINE 0 /HPF (0-FEW); RBC,URINE 0 /HPF (0-2); WBC,URINE 0 /HPF (0-4)
[2019-10-15] MEDS ORDERED: PANTOPRAZOLE IV PUSH 40 MG VIAL. IVP ONE (05:00)
--- NOTE | 2019-10-15 06:30 | NUR ---
called [phone] and left message for consult for paracentesis
--- NOTE | 2019-10-15 07:00 | NUR ---
pt admitted from ER via wheelchair with admission diagnosis of abdominal pain and ascites patient stated had paracentesis done in the past pt current smoker refused info regarding smoking cessation stated last drink a month ago called Dr Taylor answering service informed of consult
--- NOTE | 2019-10-15 08:44 | NUR ---
talked to Paola regarding consult to stated will relay message
--- NOTE | 2019-10-15 12:32 | NUR ---
SW following. Discussed with RN, pt from home, room air, npo. Pt having a paracentesis later today. RN advised no SW needs at this time. SW will continue to follow, should any discharge needs arise.
--- NOTE | 2019-10-15 12:35 | RAD ---
Limited abdominal ultrasound without comparison for abdominal distention, possible ascites. TECHNIQUE AND FINDINGS: Four-quadrant grayscale abdominal imaging is performed demonstrating a large amount of abdominal ascites in all 4 quadrants. IMPRESSION: 1. Ascites. Electronically signed by: Emerson Gómez MD (10/15/2019 12:32 PM) [id number]
[2019-10-15 12:45] LABS: PROTHROMBIN TIME PATIENT 17.2 SEC (11.7-14.0)
--- NOTE | 2019-10-15 13:44 | PDOC ---
G I PROGRESS NOTE Reason for Follow-up Cirrhosis with ascites Subjective dyspneic Physical Exam Lungs decreased BS CV S1 S2 ABD +BS, distended, +BS Review of Relevant I have reviewed the following items elvis (where applicable) has been applied. Labs Laboratory Tests Test 10/15/19 00:12 10/15/19 01:35 10/15/19 03:25 White Blood Count 13.7 x10^3/uL (4.0-11.0) Red Blood Count 3.21 x10^6/uL (3.50-5.40) Hemoglobin 10.1 g/dL (12.0-15.5) Hematocrit 29.9 % (36.0-47.0) Mean Corpuscular Volume 93 fL (79-100) Mean Corpuscular Hemoglobin 32 pg (25-35) Mean Corpuscular Hemoglobin Concent 34 g/dL (31-37) Red Cell Distribution Width 18.4 % (11.5-14.5) Platelet Count 380 x10^3/uL (140-400) Neutrophils (%) (Auto) 70 % (31-73) Lymphocytes (%) (Auto) 18 % (24-48) Monocytes (%) (Auto) 9 % (0-9) Eosinophils (%) (Auto) 2 % (0-3) Basophils (%) (Auto) 0 % (0-3) Neutrophils # (Auto) 9.6 x10^3/uL (1.8-7.7) Lymphocytes # (Auto) 2.5 x10^3/uL (1.0-4.8) Monocytes # (Auto) 1.3 x10^3/uL (0.0-1.1) Eosinophils # (Auto) 0.3 x10^3/uL (0.0-0.7) Basophils # (Auto) 0.0 x10^3/uL (0.0-0.2) Prothrombin Time 17.2 SEC (11.7-14.0) Prothromb Time International Ratio 1.4 (0.8-1.1) Sodium Level 135 mmol/L (136-145) Potassium Level 3.2 mmol/L (3.5-5.1) Chloride Level 100 mmol/L (98-107) Carbon Dioxide Level 29 mmol/L (21-32) Anion Gap 6 (6-14) Blood Urea Nitrogen 7 mg/dL (7-20) Creatinine 0.9 mg/dL (0.6-1.0) Estimated GFR (Cockcroft-Gault) 68.0 BUN/Creatinine Ratio 8 (6-20) Glucose Level 104 mg/dL (70-99) Calcium Level 7.4 mg/dL (8.5-10.1) Total Bilirubin 2.3 mg/dL (0.2-1.0) Aspartate Amino Transf (AST/SGOT) 54 U/L (15-37) Alanine Aminotransferase (ALT/SGPT) 11 U/L (14-59) Alkaline Phosphatase 252 U/L (46-116) Ammonia 59 mcmol/L (11-34) Total Protein 6.2 g/dL (6.4-8.2) Albumin 1.8 g/dL (3.4-5.0) Albumin/Globulin Ratio 0.4 (1.0-1.7) Lipase 155 U/L (73-393) Urine Collection Type Unknown Urine Color [place] Urine Clarity Turbid Urine pH (<5.0-8.0) Urine Specific [place] 1.025 (1.000-1.030) Urine Protein mg/dL (NEG-TRACE) Urine Glucose (UA) mg/dL (NEG) Urine Ketones (Stick) mg/dL (NEG) Urine Blood (NEG) Urine Nitrite (NEG) Urine Bilirubin (NEG) Urine Urobilinogen Dipstick mg/dL (0.2 mg/dL) Urine Leukocyte Esterase (NEG) Urine RBC 0 /HPF (0-2) Urine WBC 0 /HPF (0-4) Urine Squamous Epithelial Cells Few /LPF Urine Amorphous Sediment Present /HPF Urine Bacteria 0 /HPF (0-FEW) Urine Mucus Slight /LPF Laboratory Tests Test 10/15/19 00:12 10/15/19 01:35 10/15/19 03:25 White Blood Count 13.7 x10^3/uL (4.0-11.0) Red Blood Count 3.21 x10^6/uL (3.50-5.40) Hemoglobin 10.1 g/dL (12.0-15.5) Hematocrit 29.9 % (36.0-47.0) Mean Corpuscular Volume 93 fL (79-100) Mean Corpuscular Hemoglobin 32 pg (25-35) Mean Corpuscular Hemoglobin Concent 34 g/dL (31-37) Red Cell Distribution Width 18.4 % (11.5-14.5) Platelet Count 380 x10^3/uL (140-400) Neutrophils (%) (Auto) 70 % (31-73) Lymphocytes (%) (Auto) 18 % (24-48) Monocytes (%) (Auto) 9 % (0-9) Eosinophils (%) (Auto) 2 % (0-3) Basophils (%) (Auto) 0 % (0-3) Neutrophils # (Auto) 9.6 x10^3/uL (1.8-7.7) Lymphocytes # (Auto) 2.5 x10^3/uL (1.0-4.8) Monocytes # (Auto) 1.3 x10^3/uL (0.0-1.1) Eosinophils # (Auto) 0.3 x10^3/uL (0.0-0.7) Basophils # (Auto) 0.0 x10^3/uL (0.0-0.2) Prothrombin Time 17.2 SEC (11.7-14.0) Prothromb Time International Ratio 1.4 (0.8-1.1) Sodium Level 135 mmol/L (136-145) Potassium Level 3.2 mmol/L (3.5-5.1) Chloride Level 100 mmol/L (98-107) Carbon Dioxide Level 29 mmol/L (21-32) Anion Gap 6 (6-14) Blood Urea Nitrogen 7 mg/dL (7-20) Creatinine 0.9 mg/dL (0.6-1.0) Estimated GFR (Cockcroft-Gault) 68.0 BUN/Creatinine Ratio 8 (6-20) Glucose Level 104 mg/dL (70-99) Calcium Level 7.4 mg/dL (8.5-10.1) Total Bilirubin 2.3 mg/dL (0.2-1.0) Aspartate Amino Transf (AST/SGOT) 54 U/L (15-37) Alanine Aminotransferase (ALT/SGPT) 11 U/L (14-59) Alkaline Phosphatase 252 U/L (46-116) Ammonia 59 mcmol/L (11-34) Total Protein 6.2 g/dL (6.4-8.2) Albumin 1.8 g/dL (3.4-5.0) Albumin/Globulin Ratio 0.4 (1.0-1.7) Lipase 155 U/L (73-393) Urine Collection Type Unknown Urine Color [place] Urine Clarity Turbid Urine pH (<5.0-8.0) Urine Specific [place] 1.025 (1.000-1.030) Urine Protein mg/dL (NEG-TRACE) Urine Glucose (UA) mg/dL (NEG) Urine Ketones (Stick) mg/dL (NEG) Urine Blood (NEG) Urine Nitrite (NEG) Urine Bilirubin (NEG) Urine Urobilinogen Dipstick mg/dL (0.2 mg/dL) Urine Leukocyte Esterase (NEG) Urine RBC 0 /HPF (0-2) Urine WBC 0 /HPF (0-4) Urine Squamous Epithelial Cells Few /LPF Urine Amorphous Sediment Present /HPF Urine Bacteria 0 /HPF (0-FEW) Urine Mucus Slight /LPF Medications Current Medications Hydromorphone HCl (Dilaudid) 1 mg 1X ONCE IVP Last administered on 10/15/19at 00:30; Start 10/15/19 at 00:15; Stop 10/15/19 at 00:16; Status DC Ondansetron HCl (Zofran) 4 mg 1X ONCE IV Last administered on 10/15/19at 00:29; Start 10/15/19 at 00:15; Stop 10/15/19 at 00:16; Status DC Ondansetron HCl (Zofran) 4 mg PRN Q8HRS PRN IV NAUSEA/VOMITING; Start 10/15/19 at 00:15; Stop 10/16/19 at 00:14 Fentanyl Citrate (Fentanyl 2ml Vial) 50 mcg PRN Q1HR PRN IV PAIN Last administered on 10/15/19at 13:04; Start 10/15/19 at 00:15; Stop 10/16/19 at 00:14 Piperacillin Sod/ Tazobactam Sod 3.375 gm/Sodium Chloride 50 ml @ 100 mls/hr Q6HRS IV Last administered on 10/15/19at 13:03; Start 10/15/19 at 02:00 Pantoprazole Sodium (PROTONIX VIAL for IV PUSH) 40 mg DAILYAC IVP Last administered on 10/15/19at 07:53; Start 10/16/19 at 07:30 Pantoprazole Sodium (PROTONIX VIAL for IV PUSH) 40 mg 1X ONCE IVP Last administered on 10/15/19at 05:18; Start 10/15/19 at 05:00; Stop 10/15/19 at 05:06; Status DC Spironolactone (Aldactone) 100 mg DAILY PO ; Start 10/15/19 at 13:45; Status UNV Active Scripts Active Lisinopril 5 Mg Tablet 5 Mg PO DAILY 30 Days Clopidogrel (Clopidogrel Bisulfate) 75 Mg Tablet 75 Mg PO [id number] 30 Days Aspirin Ec (Aspirin) 81 Mg Tablet.dr 81 Mg PO DAILYWBKFT 30 Days Reported Lovastatin 40 Mg Tablet 1 Tab PO QHS Proair Hfa Inhaler (Albuterol Sulfate) 8.5 Gm Hfa.aer.ad 1 Puff INH PRN Q6HRS PRN Vitals/I & O Vital Sign - Last 24 Hours 10/14/19 10/15/19 10/15/19 10/15/19 23:54 00:30 00:30 01:00 Temp 98.6 98.6 Pulse 121 116 Resp 20 24 20 B/P (MAP) 105/64 (78) 120/58 (78) Pulse Ox 100 100 100 O2 Delivery Room Air Room Air Room Air Room Air 10/15/19 10/15/19 10/15/19 10/15/19 01:00 02:32 02:35 06:00 Temp 99.0 99.0 Pulse 108 108 Resp 20 18 18 18 B/P (MAP) 116/59 (78) 115/63 (80) Pulse Ox 95 95 O2 Delivery Room Air Room Air 10/15/19 10/15/19 10/15/19 10/15/19 07:00 07:50 07:56 08:20 Temp 98.4 98.4 Pulse 94 Resp 18 18 B/P (MAP) 101/63 (76) Pulse Ox 96 96 O2 Delivery Room Air Room Air Room Air 10/15/19 11:00 Temp 98.4 98.4 Pulse 90 Resp 18 B/P (MAP) 93/51 (65) Pulse Ox 95 O2 Delivery Room Air Problem List Problems Medical Problems: (1) Ascites due to alcoholic cirrhosis Status: Acute Assessment Cirrhsosi- with alcohol, therapeutic paracentesis with fluid analysis, AFP level and doppler study to assess for portal vein patency, shelter prognosis poor with decompensated status, MELD score 15 with 6% 3 month mortality rate Justicifation of Admission Dx: Justifications for Admission: Justification of Admission Dx: Yes AZUCENA LOPEZ MD Oct 15, 2019 13:44
[2019-10-15] MEDS: SPIRONOLACTONE 25 MG TABLET PO SCH (13:47)
--- NOTE | 2019-10-15 13:57 | PDOC1 ---
History and Physical Date of Admission Date of Admission 10/15/2019 Identification/Chief Complaint Chief Complaint Elvi cesar Source Source: Chart review, Patient History of Present Illness History of Present Illness Patient is a 43-year-old female with past medical history of alcoholism and as a consequent cirrhosis and asthma who was in her usual state of health until the night prior to her admission when she came to the emergency department for evaluation she says the her ascites has gotten worse over the last 3 weeks she had her last paracentesis about that time and according to the patient she has not had dietary transgressions since she has been sober for over a month. The patient feels quite swollen and is in a great deal of pain the pain she describes as a sharp sensation 8 out of 10 intensity generalized with no radiation to the back or the groin nor hematuria has been reported no CVA tenderness. The patient also refers low oral intake due to sensation of early satiety as a consequence of her ascites. She denies hematemesis no melena was reported patient has not tried to self medicate at home and she came to the emergency department due to the progressive nature of her symptoms. The patient denies fever chills no recent sick contacts no headache no upper respiratory tract infection symptoms no cough sputum production no chest pain palpitations she denies any neurological deficits either. Plan of care has been explained detail and all of her concerns were addressed to the best of my abilities ER history is as follows: [facility] [address], [place] [phone] Emergency Room Patient: NATHAN KHANNA Acct:[id number] Unit: [id number] : 1975 Loc: [address] [place] [address]/ Bed: 42[facility] Age/Sex: 43 / F ADM Status: ADM IN ADM Date: 10/15/19 Past Medical History Past Medical History: Asthma, Liver Disease Past Surgical History: Tubal ligation Additional Past Surgical Histo: L ANKLE Smoking Status: Current Every Day Smoker Alcohol Use: Sober Additional Information: PATIENT STATES SHE HASN'T DRANK IN A MONTH Drug Use: Marijuana General Adult EDM: Chief Complaint: ABDOMINAL PAIN HPI: HPI: Patient is a 43-year-old very unfortunate female with alcoholic hepatitis and subsequent liver failure with cirrhosis. She had a paracentesis about 3 weeks ago. She states she has been having these procedures routinely. She states her abdomen is quite swollen now with an incredible amount of pain. She states the pain is diffuse unrelenting. She has had no nausea or vomiting but she states she does not have any appetite. She denies any melena hematemesis or hematochezia. Nothing at home is helping the pain. She denies any fever chills or sweats. [] Past Medical History GI: Other (Cirrhosis secondary to alcoholism) Past Surgical History Past Surgical History: Tubal Ligation, No pertinent history Family History Family History: Coronary Artery Disease, Heart Disease Social History Smoke: No ALCOHOL: none Drugs: Marijuana Current Problem List Problem List Problems Medical Problems: (1) Ascites due to alcoholic cirrhosis Status: Acute Current Medications Current Medications Current Medications Medications (Trade) Dose Ordered Sig/Jimmei Start Time Stop Time Status Last Admin Dose Admin Fentanyl Citrate (Fentanyl 2ml Vial) 50 mcg PRN Q1HR PRN 10/15/19 00:15 10/16/19 00:14 10/15/19 13:04 50 MCG Hydromorphone HCl (Dilaudid) 1 mg 1X ONCE 10/15/19 00:15 10/15/19 00:16 DC 10/15/19 00:30 1 MG Ondansetron HCl (Zofran) 4 mg PRN Q8HRS PRN 10/15/19 00:15 10/16/19 00:14 Pantoprazole Sodium (PROTONIX VIAL for IV PUSH) 40 mg 1X ONCE 10/15/19 05:00 10/15/19 05:06 DC 10/15/19 05:18 40 MG Piperacillin Sod/ Tazobactam Sod 3.375 gm/Sodium Chloride 50 ml @ 100 mls/hr Q6HRS 10/15/19 02:00 10/15/19 13:03 100 MLS/HR Spironolactone (Aldactone) 100 mg DAILY 10/15/19 14:00 10/15/19 13:47 100 MG Allergies Allergies Allergies Coded Allergies Type Severity Reaction Last Updated Verified No Known Drug Allergies 12/25/13 No ROS Review of System CONSTITUTIONAL: No fever or chills EYES: No recent changes SKIN: No rash or itching CARDIOVASCULAR: No chest pain, syncope, palpitations, or edema RESPIRATORY: No SOB or cough GASTROINTESTINAL: No nausea, vomiting positive for abdominal pain NEUROLOGICAL: No headaches or weakness ENDOCRINE: No cold or heat intolerance GENITOURINARY: No urgency or frequency of urination MUSCULOSKELETAL: No back pain or joint pain LYMPHATICS: No enlarged lymph nodes PSYCHIATRIC: No anxiety or depression Physical Exam Physical Exam GEN.: No apparent distress. Alert and oriented. HEENT: Head is normocephalic, atraumatic NECK: Supple. LUNGS: Clear to auscultation. HEART: RRR, S1, S2 present. Peripheral pulses intact ABDOMEN: Soft, nontender. Positive bowel sounds. EXTREMITIES: Without any cyanosis. NEUROLOGIC: Normal speech, normal tone PSYCHIATRIC: Normal affect, normal mood. SKIN: No ulcerations Vitals Vitals Vital Signs Date Time Temp Pulse Resp B/P (MAP) Pulse Ox O2 Delivery O2 Flow Rate FiO2 10/15/19 11:00 98.4 90 18 93/51 (65) 95 Room Air 98.4 Labs Labs Laboratory Tests Test 10/15/19 00:12 10/15/19 01:35 10/15/19 03:25 White Blood Count 13.7 x10^3/uL (4.0-11.0) Red Blood Count 3.21 x10^6/uL (3.50-5.40) Hemoglobin 10.1 g/dL (12.0-15.5) Hematocrit 29.9 % (36.0-47.0) Mean Corpuscular Volume 93 fL (79-100) Mean Corpuscular Hemoglobin 32 pg (25-35) Mean Corpuscular Hemoglobin Concent 34 g/dL (31-37) Red Cell Distribution Width 18.4 % (11.5-14.5) Platelet Count 380 x10^3/uL (140-400) Neutrophils (%) (Auto) 70 % (31-73) Lymphocytes (%) (Auto) 18 % (24-48) Monocytes (%) (Auto) 9 % (0-9) Eosinophils (%) (Auto) 2 % (0-3) Basophils (%) (Auto) 0 % (0-3) Neutrophils # (Auto) 9.6 x10^3/uL (1.8-7.7) Lymphocytes # (Auto) 2.5 x10^3/uL (1.0-4.8) Monocytes # (Auto) 1.3 x10^3/uL (0.0-1.1) Eosinophils # (Auto) 0.3 x10^3/uL (0.0-0.7) Basophils # (Auto) 0.0 x10^3/uL (0.0-0.2) Prothrombin Time 17.2 SEC (11.7-14.0) Prothromb Time International Ratio 1.4 (0.8-1.1) Sodium Level 135 mmol/L (136-145) Potassium Level 3.2 mmol/L (3.5-5.1) Chloride Level 100 mmol/L (98-107) Carbon Dioxide Level 29 mmol/L (21-32) Anion Gap 6 (6-14) Blood Urea Nitrogen 7 mg/dL (7-20) Creatinine 0.9 mg/dL (0.6-1.0) Estimated GFR (Cockcroft-Gault) 68.0 BUN/Creatinine Ratio 8 (6-20) Glucose Level 104 mg/dL (70-99) Calcium Level 7.4 mg/dL (8.5-10.1) Total Bilirubin 2.3 mg/dL (0.2-1.0) Aspartate Amino Transf (AST/SGOT) 54 U/L (15-37) Alanine Aminotransferase (ALT/SGPT) 11 U/L (14-59) Alkaline Phosphatase 252 U/L (46-116) Ammonia 59 mcmol/L (11-34) Total Protein 6.2 g/dL (6.4-8.2) Albumin 1.8 g/dL (3.4-5.0) Albumin/Globulin Ratio 0.4 (1.0-1.7) Lipase 155 U/L (73-393) Urine Collection Type Unknown Urine Color [place] Urine Clarity Turbid Urine pH (<5.0-8.0) Urine Specific [place] 1.025 (1.000-1.030) Urine Protein mg/dL (NEG-TRACE) Urine Glucose (UA) mg/dL (NEG) Urine Ketones (Stick) mg/dL (NEG) Urine Blood (NEG) Urine Nitrite (NEG) Urine Bilirubin (NEG) Urine Urobilinogen Dipstick mg/dL (0.2 mg/dL) Urine Leukocyte Esterase (NEG) Urine RBC 0 /HPF (0-2) Urine WBC 0 /HPF (0-4) Urine Squamous Epithelial Cells Few /LPF Urine Amorphous Sediment Present /HPF Urine Bacteria 0 /HPF (0-FEW) Urine Mucus Slight /LPF Laboratory Tests Test 10/15/19 00:12 10/15/19 01:35 10/15/19 03:25 White Blood Count 13.7 x10^3/uL (4.0-11.0) Red Blood Count 3.21 x10^6/uL (3.50-5.40) Hemoglobin 10.1 g/dL (12.0-15.5) Hematocrit 29.9 % (36.0-47.0) Mean Corpuscular Volume 93 fL (79-100) Mean Corpuscular Hemoglobin 32 pg (25-35) Mean Corpuscular Hemoglobin Concent 34 g/dL (31-37) Red Cell Distribution Width 18.4 % (11.5-14.5) Platelet Count 380 x10^3/uL (140-400) Neutrophils (%) (Auto) 70 % (31-73) Lymphocytes (%) (Auto) 18 % (24-48) Monocytes (%) (Auto) 9 % (0-9) Eosinophils (%) (Auto) 2 % (0-3) Basophils (%) (Auto) 0 % (0-3) Neutrophils # (Auto) 9.6 x10^3/uL (1.8-7.7) Lymphocytes # (Auto) 2.5 x10^3/uL (1.0-4.8) Monocytes # (Auto) 1.3 x10^3/uL (0.0-1.1) Eosinophils # (Auto) 0.3 x10^3/uL (0.0-0.7) Basophils # (Auto) 0.0 x10^3/uL (0.0-0.2) Prothrombin Time 17.2 SEC (11.7-14.0) Prothromb Time International Ratio 1.4 (0.8-1.1) Sodium Level 135 mmol/L (136-145) Potassium Level 3.2 mmol/L (3.5-5.1) Chloride Level 100 mmol/L (98-107) Carbon Dioxide Level 29 mmol/L (21-32) Anion Gap 6 (6-14) Blood Urea Nitrogen 7 mg/dL (7-20) Creatinine 0.9 mg/dL (0.6-1.0) Estimated GFR (Cockcroft-Gault) 68.0 BUN/Creatinine Ratio 8 (6-20) Glucose Level 104 mg/dL (70-99) Calcium Level 7.4 mg/dL (8.5-10.1) Total Bilirubin 2.3 mg/dL (0.2-1.0) Aspartate Amino Transf (AST/SGOT) 54 U/L (15-37) Alanine Aminotransferase (ALT/SGPT) 11 U/L (14-59) Alkaline Phosphatase 252 U/L (46-116) Ammonia 59 mcmol/L (11-34) Total Protein 6.2 g/dL (6.4-8.2) Albumin 1.8 g/dL (3.4-5.0) Albumin/Globulin Ratio 0.4 (1.0-1.7) Lipase 155 U/L (73-393) Urine Collection Type Unknown Urine Color [place] Urine Clarity Turbid Urine pH (<5.0-8.0) Urine Specific [place] 1.025 (1.000-1.030) Urine Protein mg/dL (NEG-TRACE) Urine Glucose (UA) mg/dL (NEG) Urine Ketones (Stick) mg/dL (NEG) Urine Blood (NEG) Urine Nitrite (NEG) Urine Bilirubin (NEG) Urine Urobilinogen Dipstick mg/dL (0.2 mg/dL) Urine Leukocyte Esterase (NEG) Urine RBC 0 /HPF (0-2) Urine WBC 0 /HPF (0-4) Urine Squamous Epithelial Cells Few /LPF Urine Amorphous Sediment Present /HPF Urine Bacteria 0 /HPF (0-FEW) Urine Mucus Slight /LPF VTE Prophylaxis Ordered VTE Prophylaxis Devices: Yes VTE Pharmacological Prophylaxi: Yes Assessment/Plan Assessment/Plan Ascites Abdominal pain secondary to the above Dyspnea secondary to ascites Alcoholic cirrhosis Recovering alcoholic per history Leukocytosis Normocytic anemia most likely of chronic disease Hypokalemia Hyperammonemia without clinical significance Severe protein calorie malnutrition Plan: Consult interventional radiology for a possible paracentesis Follow GI business process consultant recommendations as well which has been requested by the emergency department physician Continue home medications Follow results of paracentesis Patient certainly is at risk for SBP we will follow recommendations from GI business process consultant DVT prophylaxis with SCDs Further recommendations based on the clinical course Justicifation of Admission Dx: Justifications for Admission: Justification of Admission Dx: Yes RAO JASON MD Oct 15, 2019 13:57
[2019-10-15] MEDS ORDERED: LIDOCAINE WITH 8.4% SOD BICARB 3 ML DISP.SYRIN. ONE (14:03)
[2019-10-15] MEDS ORDERED: LIDOCAINE WITH 8.4% SOD BICARB 3 ML DISP.SYRIN. INJ ONE (14:30)
[2019-10-15] MEDS ORDERED: ALBUMIN HUMAN 25% 200 ML IV ONE (14:32)
[2019-10-15] MEDS ORDERED: ALBUMIN HUMAN 25% 100 ML IV ONE ×4 (14:45→15:30)
--- NOTE | 2019-10-15 14:48 | RAD ---
Arterial duplex evaluation of the portal vein 10/15/2019 INDICATION: Evaluate for portal venous thrombosis COMPARISON STUDY: None Discussion: Ultrasound evaluation of the portal vein was performed. Static images are submitted to PACS. Ascites is noted in the right upper abdomen. Main portal vein is visualized and grossly patent with flow in the normal direction. Portal venous velocity slightly below estimated 15 cm/s. Visualized main portal vein is normal in diameter measuring 9 mm. IMPRESSION: 1. Portal vein is grossly patent with flow in the normal direction, and is of a grossly normal size, but demonstrates slightly slow flow at 15 cm a second. 2. Ascites Electronically signed by: Saul Tiwari MD (10/15/2019 2:45 PM) [id number]
--- NOTE | 2019-10-15 15:57 | NUR ---
returned from paracentesis. states her pain is terrible. medicated with fentanyl given h2o and linda. dressing to right lower abdomen is clean dry . #3 albumin hung Addendum: 10/15/19 at 1600 by KAMILA SHEETS RN reported they removed [phone] from her abdomen
[2019-10-15 16:20] LABS: BF CLARITY HAZY; BF COLOR YELLOW; BF MON % 85 %; BF PMN % 7 %; BF RBC COUNT 2965 /cmm (Not Established); BF SOURCE ASCITES; BF WBC COUNT 149 /cmm (Not Established)
[2019-10-15 16:21] LABS: BF OTHER % 8 %
[2019-10-16] MEDS ORDERED: IV NORMAL SALINE 1000ML BAG 1,000 ML IV SCH (00:15)
[2019-10-16] MEDS ORDERED: HYDROmorphone 12mg/30ml PCA 30 ML IV PRN (00:15)
[2019-10-16] MEDS ORDERED: NALOXONE 0.4 MG/ML VIAL. IV PRN (00:15)
[2019-10-16 03:17] VITALS: BP 91/45
[2019-10-16] MEDS: PIPERACILLIN/TAZOBACTAM 3.375 GM in IV NORMAL SALINE 50ML 50 ML IV SCH (05:53)
[2019-10-16 06:52] LABS: BASO # 0.1 x10^3/uL (0.0-0.2); BASO % 1 % (0-3); EOS # 0.4 x10^3/uL (0.0-0.7); EOS % 5 % (0-3); HEMATOCRIT 27.6 % (36.0-47.0); HEMOGLOBIN 9.3 g/dL (12.0-15.5); LYMPH # 1.9 x10^3/uL (1.0-4.8); LYMPH % 22 % (24-48); MEAN CORPUSCULAR HEMOGLOBIN 32 pg (25-35); MEAN CORPUSCULAR HGB CONC 34 g/dL (31-37); MEAN CORPUSCULAR VOLUME 94 fL (79-100); MONO # 0.8 x10^3/uL (0.0-1.1); MONO % 10 % (0-9); NEUT # 5.1 x10^3/uL (1.8-7.7); NEUT % 62 % (31-73); PLATELET COUNT 288 x10^3/uL (140-400); RED BLOOD COUNT 2.94 x10^6/uL (3.50-5.40); RED CELL DISTRIBUTION WIDTH 17.5 % (11.5-14.5); WHITE BLOOD COUNT 8.3 x10^3/uL (4.0-11.0)
[2019-10-16 07:00] VITALS: BP 96/40
[2019-10-16 07:05] LABS: ALBUMIN 2.5 g/dL (3.4-5.0); ALBUMIN/GLOBULIN RATIO 0.8 (1.0-1.7); CALCIUM 7.6 mg/dL (8.5-10.1); CREATININE 0.9 mg/dL (0.6-1.0); TOTAL PROTEIN 5.8 g/dL (6.4-8.2)
[2019-10-16] MEDS ORDERED: PANTOPRAZOLE IV PUSH 40 MG VIAL. IVP SCH (07:30)
[2019-10-16] MEDS: SPIRONOLACTONE 25 MG TABLET PO SCH (09:00)
--- NOTE | 2019-10-16 09:23 | PDOC ---
G I PROGRESS NOTE Reason for Follow-up Ascites/cirrhosis Subjective Feels better s/p paracentesis Physical Exam Lungs clear CV S1 S2 ABD +BS, soft, less distended Review of Relevant I have reviewed the following items elvis (where applicable) has been applied. Labs Laboratory Tests Test 10/15/19 00:12 10/15/19 01:35 10/15/19 03:25 10/15/19 14:20 White Blood Count 13.7 x10^3/uL (4.0-11.0) Red Blood Count 3.21 x10^6/uL (3.50-5.40) Hemoglobin 10.1 g/dL (12.0-15.5) Hematocrit 29.9 % (36.0-47.0) Mean Corpuscular Volume 93 fL (79-100) Mean Corpuscular Hemoglobin 32 pg (25-35) Mean Corpuscular Hemoglobin Concent 34 g/dL (31-37) Red Cell Distribution Width 18.4 % (11.5-14.5) Platelet Count 380 x10^3/uL (140-400) Neutrophils (%) (Auto) 70 % (31-73) Lymphocytes (%) (Auto) 18 % (24-48) Monocytes (%) (Auto) 9 % (0-9) Eosinophils (%) (Auto) 2 % (0-3) Basophils (%) (Auto) 0 % (0-3) Neutrophils # (Auto) 9.6 x10^3/uL (1.8-7.7) Lymphocytes # (Auto) 2.5 x10^3/uL (1.0-4.8) Monocytes # (Auto) 1.3 x10^3/uL (0.0-1.1) Eosinophils # (Auto) 0.3 x10^3/uL (0.0-0.7) Basophils # (Auto) 0.0 x10^3/uL (0.0-0.2) Prothrombin Time 17.2 SEC (11.7-14.0) Prothromb Time International Ratio 1.4 (0.8-1.1) Sodium Level 135 mmol/L (136-145) Potassium Level 3.2 mmol/L (3.5-5.1) Chloride Level 100 mmol/L (98-107) Carbon Dioxide Level 29 mmol/L (21-32) Anion Gap 6 (6-14) Blood Urea Nitrogen 7 mg/dL (7-20) Creatinine 0.9 mg/dL (0.6-1.0) Estimated GFR (Cockcroft-Gault) 68.0 BUN/Creatinine Ratio 8 (6-20) Glucose Level 104 mg/dL (70-99) Calcium Level 7.4 mg/dL (8.5-10.1) Total Bilirubin 2.3 mg/dL (0.2-1.0) Aspartate Amino Transf (AST/SGOT) 54 U/L (15-37) Alanine Aminotransferase (ALT/SGPT) 11 U/L (14-59) Alkaline Phosphatase 252 U/L (46-116) Ammonia 59 mcmol/L (11-34) Total Protein 6.2 g/dL (6.4-8.2) Albumin 1.8 g/dL (3.4-5.0) Albumin/Globulin Ratio 0.4 (1.0-1.7) Lipase 155 U/L (73-393) Tumor Marker Alpha Fetoprotein 2.9 ng/mL (0.0-8.3) Urine Collection Type Unknown Urine Color [place] Urine Clarity Turbid Urine pH (<5.0-8.0) Urine Specific [place] 1.025 (1.000-1.030) Urine Protein mg/dL (NEG-TRACE) Urine Glucose (UA) mg/dL (NEG) Urine Ketones (Stick) mg/dL (NEG) Urine Blood (NEG) Urine Nitrite (NEG) Urine Bilirubin (NEG) Urine Urobilinogen Dipstick mg/dL (0.2 mg/dL) Urine Leukocyte Esterase (NEG) Urine RBC 0 /HPF (0-2) Urine WBC 0 /HPF (0-4) Urine Squamous Epithelial Cells Few /LPF Urine Amorphous Sediment Present /HPF Urine Bacteria 0 /HPF (0-FEW) Urine Mucus Slight /LPF Body Fluid Source Ascites Body Fluid Color Yellow Body Fluid Clarity Hazy Body Fluid Nucleated Cells 149 /cmm (Not Established) Body Fluid Mononuclear WBCs (%) 85 % Body Fluid Polymorphonuclear Cells 7 % Body Fluid Total RBCs Counted 2965 /cmm (Not Established) Body Fluid Other Cells (%) 8 % Test 10/16/19 05:50 White Blood Count 8.3 x10^3/uL (4.0-11.0) Red Blood Count 2.94 x10^6/uL (3.50-5.40) Hemoglobin 9.3 g/dL (12.0-15.5) Hematocrit 27.6 % (36.0-47.0) Mean Corpuscular Volume 94 fL (79-100) Mean Corpuscular Hemoglobin 32 pg (25-35) Mean Corpuscular Hemoglobin Concent 34 g/dL (31-37) Red Cell Distribution Width 17.5 % (11.5-14.5) Platelet Count 288 x10^3/uL (140-400) Neutrophils (%) (Auto) 62 % (31-73) Lymphocytes (%) (Auto) 22 % (24-48) Monocytes (%) (Auto) 10 % (0-9) Eosinophils (%) (Auto) 5 % (0-3) Basophils (%) (Auto) 1 % (0-3) Neutrophils # (Auto) 5.1 x10^3/uL (1.8-7.7) Lymphocytes # (Auto) 1.9 x10^3/uL (1.0-4.8) Monocytes # (Auto) 0.8 x10^3/uL (0.0-1.1) Eosinophils # (Auto) 0.4 x10^3/uL (0.0-0.7) Basophils # (Auto) 0.1 x10^3/uL (0.0-0.2) Sodium Level 132 mmol/L (136-145) Potassium Level 3.0 mmol/L (3.5-5.1) Chloride Level 98 mmol/L (98-107) Carbon Dioxide Level 28 mmol/L (21-32) Anion Gap 6 (6-14) Blood Urea Nitrogen 5 mg/dL (7-20) Creatinine 0.9 mg/dL (0.6-1.0) Estimated GFR (Cockcroft-Gault) 68.0 BUN/Creatinine Ratio 6 (6-20) Glucose Level 81 mg/dL (70-99) Calcium Level 7.6 mg/dL (8.5-10.1) Total Bilirubin 2.0 mg/dL (0.2-1.0) Aspartate Amino Transf (AST/SGOT) 37 U/L (15-37) Alanine Aminotransferase (ALT/SGPT) 13 U/L (14-59) Alkaline Phosphatase 165 U/L (46-116) Total Protein 5.8 g/dL (6.4-8.2) Albumin 2.5 g/dL (3.4-5.0) Albumin/Globulin Ratio 0.8 (1.0-1.7) Laboratory Tests Test 10/15/19 14:20 10/16/19 05:50 Body Fluid Source Ascites Body Fluid Color Yellow Body Fluid Clarity Hazy Body Fluid Nucleated Cells 149 /cmm (Not Established) Body Fluid Mononuclear WBCs (%) 85 % Body Fluid Polymorphonuclear Cells 7 % Body Fluid Total RBCs Counted 2965 /cmm (Not Established) Body Fluid Other Cells (%) 8 % White Blood Count 8.3 x10^3/uL (4.0-11.0) Red Blood Count 2.94 x10^6/uL (3.50-5.40) Hemoglobin 9.3 g/dL (12.0-15.5) Hematocrit 27.6 % (36.0-47.0) Mean Corpuscular Volume 94 fL (79-100) Mean Corpuscular Hemoglobin 32 pg (25-35) Mean Corpuscular Hemoglobin Concent 34 g/dL (31-37) Red Cell Distribution Width 17.5 % (11.5-14.5) Platelet Count 288 x10^3/uL (140-400) Neutrophils (%) (Auto) 62 % (31-73) Lymphocytes (%) (Auto) 22 % (24-48) Monocytes (%) (Auto) 10 % (0-9) Eosinophils (%) (Auto) 5 % (0-3) Basophils (%) (Auto) 1 % (0-3) Neutrophils # (Auto) 5.1 x10^3/uL (1.8-7.7) Lymphocytes # (Auto) 1.9 x10^3/uL (1.0-4.8) Monocytes # (Auto) 0.8 x10^3/uL (0.0-1.1) Eosinophils # (Auto) 0.4 x10^3/uL (0.0-0.7) Basophils # (Auto) 0.1 x10^3/uL (0.0-0.2) Sodium Level 132 mmol/L (136-145) Potassium Level 3.0 mmol/L (3.5-5.1) Chloride Level 98 mmol/L (98-107) Carbon Dioxide Level 28 mmol/L (21-32) Anion Gap 6 (6-14) Blood Urea Nitrogen 5 mg/dL (7-20) Creatinine 0.9 mg/dL (0.6-1.0) Estimated GFR (Cockcroft-Gault) 68.0 BUN/Creatinine Ratio 6 (6-20) Glucose Level 81 mg/dL (70-99) Calcium Level 7.6 mg/dL (8.5-10.1) Total Bilirubin 2.0 mg/dL (0.2-1.0) Aspartate Amino Transf (AST/SGOT) 37 U/L (15-37) Alanine Aminotransferase (ALT/SGPT) 13 U/L (14-59) Alkaline Phosphatase 165 U/L (46-116) Total Protein 5.8 g/dL (6.4-8.2) Albumin 2.5 g/dL (3.4-5.0) Albumin/Globulin Ratio 0.8 (1.0-1.7) Medications Current Medications Hydromorphone HCl (Dilaudid) 1 mg 1X ONCE IVP Last administered on 10/15/19at 00:30; Start 10/15/19 at 00:15; Stop 10/15/19 at 00:16; Status DC Ondansetron HCl (Zofran) 4 mg 1X ONCE IV Last administered on 10/15/19at 00:29; Start 10/15/19 at 00:15; Stop 10/15/19 at 00:16; Status DC Ondansetron HCl (Zofran) 4 mg PRN Q8HRS PRN IV NAUSEA/VOMITING; Start 10/15/19 at 00:15; Stop 10/16/19 at 00:14; Status DC Fentanyl Citrate (Fentanyl 2ml Vial) 50 mcg PRN Q1HR PRN IV PAIN Last administered on 10/15/19at 23:08; Start 10/15/19 at 00:15; Stop 10/16/19 at 00:14; Status DC Piperacillin Sod/ Tazobactam Sod 3.375 gm/Sodium Chloride 50 ml @ 100 mls/hr Q6HRS IV Last administered on 10/16/19at 05:53; Start 10/15/19 at 02:00 Pantoprazole Sodium (PROTONIX VIAL for IV PUSH) 40 mg DAILYAC IVP Last administered on 10/15/19at 07:53; Start 10/16/19 at 07:30 Pantoprazole Sodium (PROTONIX VIAL for IV PUSH) 40 mg 1X ONCE IVP Last administered on 10/15/19at 05:18; Start 10/15/19 at 05:00; Stop 10/15/19 at 05:06; Status DC Spironolactone (Aldactone) 100 mg DAILY PO Last administered on 10/15/19at 13:47; Start 10/15/19 at 14:00 Lidocaine HCl (Buffered Lidocaine 1%) 3 ml STK-MED ONCE .ROUTE ; Start 10/15/19 at 14:03; Stop 10/15/19 at 14:03; Status DC Lidocaine HCl (Buffered Lidocaine 1%) 6 ml 1X ONCE INJ Last administered on 10/15/19at 14:48; Start 10/15/19 at 14:30; Stop 10/15/19 at 14:31; Status DC Albumin Human 200 ml @ As Directed STK-MED ONCE IV ; Start 10/15/19 at 14:32; Stop 10/15/19 at 14:32; Status DC Albumin Human 100 ml @ 100 mls/hr 1X ONCE IV Last administered on 10/15/19at 14:48; Start 10/15/19 at 14:45; Stop 10/15/19 at 15:44; Status DC Albumin Human 100 ml @ 100 mls/hr 1X ONCE IV Last administered on 10/15/19at 14:48; Start 10/15/19 at 14:45; Stop 10/15/19 at 15:44; Status DC Albumin Human 100 ml @ 100 mls/hr 1X ONCE IV Last administered on 10/15/19at 15:48; Start 10/15/19 at 15:30; Stop 10/15/19 at 16:29; Status DC Albumin Human 100 ml @ 100 mls/hr 1X ONCE IV Last administered on 10/15/19at 16:50; Start 10/15/19 at 15:30; Stop 10/15/19 at 16:29; Status DC Naloxone HCl (Narcan) 0.4 mg PRN Q2MIN PRN IV SEE INSTRUCTIONS; Start 10/16/19 at 00:15 Sodium Chloride 1,000 ml @ 25 mls/hr Q24H IV Last administered on 10/16/19at 00:44; Start 10/16/19 at 00:15 Hydromorphone HCl 30 ml @ 0 mls/hr CONT PRN PRN IV PER PROTOCOL Last administered on 10/16/19at 00:45; Start 10/16/19 at 00:15 Active Scripts Active Lisinopril 5 Mg Tablet 5 Mg PO DAILY 30 Days Clopidogrel (Clopidogrel Bisulfate) 75 Mg Tablet 75 Mg PO [id number] 30 Days Aspirin Ec (Aspirin) 81 Mg Tablet.dr 81 Mg PO [id number] 30 Days Reported Lovastatin 40 Mg Tablet 1 Tab PO QHS Proair Hfa Inhaler (Albuterol Sulfate) 8.5 Gm Hfa.aer.ad 1 Puff INH PRN Q6HRS PRN Vitals/I & O Vital Sign - Last 24 Hours 10/15/19 10/15/19 10/15/19 10/15/19 10:35 11:00 14:26 14:37 Temp 98.4 98.4 Pulse 90 87 88 Resp 18 B/P (MAP) 93/51 (65) 116/62 (80) 112/58 (76) Pulse Ox 95 95 94 94 O2 Delivery Room Air Room Air Nasal Cannula Nasal Cannula O2 Flow Rate 2.0 2.0 10/15/19 10/15/19 10/15/19 10/15/19 14:52 15:02 15:20 15:49 Pulse 85 88 104 Resp 20 B/P (MAP) 93/46 (62) 91/51 (64) 124/78 (93) Pulse Ox 98 97 98 O2 Delivery Nasal Cannula Nasal Cannula Nasal Cannula Room Air O2 Flow Rate 2.0 2.0 2.0 10/15/19 10/15/19 10/15/19 10/15/19 16:06 16:15 16:30 16:45 Temp 98.8 98.8 Pulse 90 96 90 86 Resp 18 B/P (MAP) 91/42 (58) 89/45 (60) 87/41 (56) 83/40 (54) Pulse Ox 94 97 96 96 O2 Delivery Room Air Room Air Room Air Room Air 10/15/19 10/15/19 10/15/19 10/15/19 17:00 17:30 18:00 19:10 Temp 98.4 98.4 Pulse 87 95 96 94 Resp 17 B/P (MAP) 86/34 (51) 82/40 (54) 87/43 (58) 95/50 (65) Pulse Ox 96 97 96 96 O2 Delivery Room Air Room Air Room Air Room Air 10/15/19 10/15/19 10/15/19 10/15/19 20:00 21:31 22:01 23:00 Temp 98.3 98.3 Pulse 76 Resp 18 18 19 B/P (MAP) 92/45 (61) Pulse Ox 96 96 100 O2 Delivery Room Air Room Air Room Air Room Air O2 Flow Rate 2.0 2.0 10/15/19 10/15/19 10/16/19 10/16/19 23:08 23:38 00:45 01:15 Resp 18 18 18 18 Pulse Ox 96 96 96 96 O2 Delivery Room Air Room Air Room Air Room Air O2 Flow Rate 2.0 2.0 2.0 2.0 10/16/19 10/16/19 03:17 07:00 Temp 97.8 98.1 97.8 98.1 Pulse 85 94 Resp 18 18 B/P (MAP) 91/45 (60) 96/40 (58) Pulse Ox 98 97 O2 Delivery Room Air Room Air Intake and Output 10/15/19 10/15/19 10/16/19 15:00 23:00 07:00 Intake Total 240 ml 880 ml 550 ml Output Total 52454 ml Balance 240 ml -06174 ml 550 ml Problem List Problems Medical Problems: (1) Ascites due to alcoholic cirrhosis Status: Acute Assessment Alcohoic cirrhosis-with ascites, s/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
[2019-10-16] MEDS ORDERED: SPIR25TA PO (10:22)
[2019-10-16] MEDS ORDERED: FURO-69 PO (10:22)
--- NOTE | 2019-10-16 10:26 | PDOC3 ---
Discharge Summary Visit Information Date of Admission: Oct 15, 2019 Date of Discharge: Oct 16, 2019 Final Diagnosis Ascites Abdominal pain secondary to the above Dyspnea secondary to ascites Alcoholic cirrhosis Recovering alcoholic per history Leukocytosis Normocytic anemia most likely of chronic disease Hypokalemia Hyperammonemia without clinical significance Severe protein calorie malnutrition Problems Medical Problems: (1) Ascites due to alcoholic cirrhosis Status: Acute Brief Hospital Course Allergies Allergies Coded Allergies Type Severity Reaction Last Updated Verified No Known Drug Allergies 12/25/13 No Vital Signs Vital Signs Date Time Temp Pulse Resp B/P (MAP) Pulse Ox O2 Delivery O2 Flow Rate FiO2 10/16/19 07:00 98.1 94 18 96/40 (58) 97 Room Air 98.1 10/16/19 01:15 2.0 Lab Results Laboratory Tests Test 10/15/19 00:12 10/15/19 01:35 10/15/19 03:25 10/15/19 14:20 White Blood Count 13.7 x10^3/uL (4.0-11.0) Red Blood Count 3.21 x10^6/uL (3.50-5.40) Hemoglobin 10.1 g/dL (12.0-15.5) Hematocrit 29.9 % (36.0-47.0) Mean Corpuscular Volume 93 fL (79-100) Mean Corpuscular Hemoglobin 32 pg (25-35) Mean Corpuscular Hemoglobin Concent 34 g/dL (31-37) Red Cell Distribution Width 18.4 % (11.5-14.5) Platelet Count 380 x10^3/uL (140-400) Neutrophils (%) (Auto) 70 % (31-73) Lymphocytes (%) (Auto) 18 % (24-48) Monocytes (%) (Auto) 9 % (0-9) Eosinophils (%) (Auto) 2 % (0-3) Basophils (%) (Auto) 0 % (0-3) Neutrophils # (Auto) 9.6 x10^3/uL (1.8-7.7) Lymphocytes # (Auto) 2.5 x10^3/uL (1.0-4.8) Monocytes # (Auto) 1.3 x10^3/uL (0.0-1.1) Eosinophils # (Auto) 0.3 x10^3/uL (0.0-0.7) Basophils # (Auto) 0.0 x10^3/uL (0.0-0.2) Prothrombin Time 17.2 SEC (11.7-14.0) Prothromb Time International Ratio 1.4 (0.8-1.1) Sodium Level 135 mmol/L (136-145) Potassium Level 3.2 mmol/L (3.5-5.1) Chloride Level 100 mmol/L (98-107) Carbon Dioxide Level 29 mmol/L (21-32) Anion Gap 6 (6-14) Blood Urea Nitrogen 7 mg/dL (7-20) Creatinine 0.9 mg/dL (0.6-1.0) Estimated GFR (Cockcroft-Gault) 68.0 BUN/Creatinine Ratio 8 (6-20) Glucose Level 104 mg/dL (70-99) Calcium Level 7.4 mg/dL (8.5-10.1) Total Bilirubin 2.3 mg/dL (0.2-1.0) Aspartate Amino Transf (AST/SGOT) 54 U/L (15-37) Alanine Aminotransferase (ALT/SGPT) 11 U/L (14-59) Alkaline Phosphatase 252 U/L (46-116) Ammonia 59 mcmol/L (11-34) Total Protein 6.2 g/dL (6.4-8.2) Albumin 1.8 g/dL (3.4-5.0) Albumin/Globulin Ratio 0.4 (1.0-1.7) Lipase 155 U/L (73-393) Tumor Marker Alpha Fetoprotein 2.9 ng/mL (0.0-8.3) Urine Collection Type Unknown Urine Color [place] Urine Clarity Turbid Urine pH (<5.0-8.0) Urine Specific [place] 1.025 (1.000-1.030) Urine Protein mg/dL (NEG-TRACE) Urine Glucose (UA) mg/dL (NEG) Urine Ketones (Stick) mg/dL (NEG) Urine Blood (NEG) Urine Nitrite (NEG) Urine Bilirubin (NEG) Urine Urobilinogen Dipstick mg/dL (0.2 mg/dL) Urine Leukocyte Esterase (NEG) Urine RBC 0 /HPF (0-2) Urine WBC 0 /HPF (0-4) Urine Squamous Epithelial Cells Few /LPF Urine Amorphous Sediment Present /HPF Urine Bacteria 0 /HPF (0-FEW) Urine Mucus Slight /LPF Body Fluid Source Ascites Body Fluid Color Yellow Body Fluid Clarity Hazy Body Fluid Nucleated Cells 149 /cmm (Not Established) Body Fluid Mononuclear WBCs (%) 85 % Body Fluid Polymorphonuclear Cells 7 % Body Fluid Total RBCs Counted 2965 /cmm (Not Established) Body Fluid Other Cells (%) 8 % Test 10/16/19 05:50 White Blood Count 8.3 x10^3/uL (4.0-11.0) Red Blood Count 2.94 x10^6/uL (3.50-5.40) Hemoglobin 9.3 g/dL (12.0-15.5) Hematocrit 27.6 % (36.0-47.0) Mean Corpuscular Volume 94 fL (79-100) Mean Corpuscular Hemoglobin 32 pg (25-35) Mean Corpuscular Hemoglobin Concent 34 g/dL (31-37) Red Cell Distribution Width 17.5 % (11.5-14.5) Platelet Count 288 x10^3/uL (140-400) Neutrophils (%) (Auto) 62 % (31-73) Lymphocytes (%) (Auto) 22 % (24-48) Monocytes (%) (Auto) 10 % (0-9) Eosinophils (%) (Auto) 5 % (0-3) Basophils (%) (Auto) 1 % (0-3) Neutrophils # (Auto) 5.1 x10^3/uL (1.8-7.7) Lymphocytes # (Auto) 1.9 x10^3/uL (1.0-4.8) Monocytes # (Auto) 0.8 x10^3/uL (0.0-1.1) Eosinophils # (Auto) 0.4 x10^3/uL (0.0-0.7) Basophils # (Auto) 0.1 x10^3/uL (0.0-0.2) Sodium Level 132 mmol/L (136-145) Potassium Level 3.0 mmol/L (3.5-5.1) Chloride Level 98 mmol/L (98-107) Carbon Dioxide Level 28 mmol/L (21-32) Anion Gap 6 (6-14) Blood Urea Nitrogen 5 mg/dL (7-20) Creatinine 0.9 mg/dL (0.6-1.0) Estimated GFR (Cockcroft-Gault) 68.0 BUN/Creatinine Ratio 6 (6-20) Glucose Level 81 mg/dL (70-99) Calcium Level 7.6 mg/dL (8.5-10.1) Total Bilirubin 2.0 mg/dL (0.2-1.0) Aspartate Amino Transf (AST/SGOT) 37 U/L (15-37) Alanine Aminotransferase (ALT/SGPT) 13 U/L (14-59) Alkaline Phosphatase 165 U/L (46-116) Total Protein 5.8 g/dL (6.4-8.2) Albumin 2.5 g/dL (3.4-5.0) Albumin/Globulin Ratio 0.8 (1.0-1.7) Laboratory Tests Test 10/15/19 14:20 10/16/19 05:50 Body Fluid Source Ascites Body Fluid Color Yellow Body Fluid Clarity Hazy Body Fluid Nucleated Cells 149 /cmm (Not Established) Body Fluid Mononuclear WBCs (%) 85 % Body Fluid Polymorphonuclear Cells 7 % Body Fluid Total RBCs Counted 2965 /cmm (Not Established) Body Fluid Other Cells (%) 8 % White Blood Count 8.3 x10^3/uL (4.0-11.0) Red Blood Count 2.94 x10^6/uL (3.50-5.40) Hemoglobin 9.3 g/dL (12.0-15.5) Hematocrit 27.6 % (36.0-47.0) Mean Corpuscular Volume 94 fL (79-100) Mean Corpuscular Hemoglobin 32 pg (25-35) Mean Corpuscular Hemoglobin Concent 34 g/dL (31-37) Red Cell Distribution Width 17.5 % (11.5-14.5) Platelet Count 288 x10^3/uL (140-400) Neutrophils (%) (Auto) 62 % (31-73) Lymphocytes (%) (Auto) 22 % (24-48) Monocytes (%) (Auto) 10 % (0-9) Eosinophils (%) (Auto) 5 % (0-3) Basophils (%) (Auto) 1 % (0-3) Neutrophils # (Auto) 5.1 x10^3/uL (1.8-7.7) Lymphocytes # (Auto) 1.9 x10^3/uL (1.0-4.8) Monocytes # (Auto) 0.8 x10^3/uL (0.0-1.1) Eosinophils # (Auto) 0.4 x10^3/uL (0.0-0.7) Basophils # (Auto) 0.1 x10^3/uL (0.0-0.2) Sodium Level 132 mmol/L (136-145) Potassium Level 3.0 mmol/L (3.5-5.1) Chloride Level 98 mmol/L (98-107) Carbon Dioxide Level 28 mmol/L (21-32) Anion Gap 6 (6-14) Blood Urea Nitrogen 5 mg/dL (7-20) Creatinine 0.9 mg/dL (0.6-1.0) Estimated GFR (Cockcroft-Gault) 68.0 BUN/Creatinine Ratio 6 (6-20) Glucose Level 81 mg/dL (70-99) Calcium Level 7.6 mg/dL (8.5-10.1) Total Bilirubin 2.0 mg/dL (0.2-1.0) Aspartate Amino Transf (AST/SGOT) 37 U/L (15-37) Alanine Aminotransferase (ALT/SGPT) 13 U/L (14-59) Alkaline Phosphatase 165 U/L (46-116) Total Protein 5.8 g/dL (6.4-8.2) Albumin 2.5 g/dL (3.4-5.0) Albumin/Globulin Ratio 0.8 (1.0-1.7) Brief Hospital Course Ms. Man is a 43 old female, admit with marked pain and ascites, Consult interventional radiology for a possible paracentesis, 15 liters removed, Follow GI safety and health consultant recommendations DC on lasix and aldactone, she follows elsewhere and gets paracentesis q 3 weeks Discharge Information Condition at Discharge: Improved Follow Up: Weeks Disposition/Orders: D/C to Home Scheduled Aspirin (Aspirin Ec) 81 Mg Tablet.dr, 81 MG PO DAILYWBKFT for 30 Days, #30 Prescribed by: YA NIXON MD on 12/28/16 1207 Clopidogrel Bisulfate (Clopidogrel) 75 Mg Tablet, 75 MG PO DAILYWBKFT for 30 Days, #30 Prescribed by: YA NIXON MD on 12/28/16 1207 Lisinopril (Lisinopril) 5 Mg Tablet, 5 MG PO DAILY for 30 Days, #30 Prescribed by: YA NIXON MD on 12/28/16 1214 Lovastatin (Lovastatin) 40 Mg Tablet, 1 TAB PO QHS, #30 Ref 5 (Reported) Entered as Reported by: DAVID FLORES on 12/28/16 1646 Scheduled PRN Albuterol Sulfate (Proair Hfa Inhaler) 8.5 Gm Hfa.aer.ad, 1 PUFF INH PRN Q6HRS PRN for SHORTNESS OF BREATH, Ref 0 (Reported) Entered as Reported by: FOSTER WILEY on 12/27/16 1631 Justicifation of Admission Dx: Justifications for Admission: Justification of Admission Dx: Yes JENNIFER PETERSEN MD Oct 16, 2019 10:26
[2019-10-16 10:51] VITALS: BP 93/58
--- NOTE | 2019-10-16 11:19 | NUR ---
SW following. Discussed with RN, discharge order for home with self care today. RN advised no SW needs, declined need for PAT referral.
[2019-10-16] MEDS ORDERED: ONDANSETRON ODT 4 MG TAB.RAPDIS. PO ONE (11:30)
[2019-10-16] MEDS ORDERED: GABA600T7 PO (11:50)
--- NOTE | 2019-10-16 16:07 | RAD ---
Ultrasound-guided paracentesis 10/16/2019 2:03 PM Procedure: The risks and benefits of the procedure were discussed the patient. Informed consent was obtained. A timeout procedure was performed. Sonographic evaluation of the abdomen was performed demonstrating ascites . The right lower quadrant was prepped and draped using maximum sterile barrier technique. 1% lidocaine without epinephrine was administered for local anesthesia. Real-time ultrasonographic guidance was used in passing a 5 [place] Yueh catheter into the fluid collection. 15 L of serous ascites was removed. The catheter was removed and pressure held to achieve hemostasis. A sterile dressing was applied. Impression: Successful ultrasound-guided paracentesis
== END 2019-10-16 11:55 | disposition home or self-care (01) | DRG 432 ==
LOC: ER 23:50 → 4 NORTH 10-15 00:12
PROVIDERS: ADMIT Internal Medicine; ATTEND Internal Medicine
PROC: 0W9G3ZZ Drainage of Peritoneal Cavity, Percutaneous Approach (ICD-10-PCS; principal; 2019-10-16)
DX: K70.31 Alcoholic cirrhosis of liver with ascites (principal); E43 Unspecified severe protein-calorie malnutrition; K70.40 Alcoholic hepatic failure without coma; K70.11 Alcoholic hepatitis with ascites; D63.8 Anemia in other chronic diseases classified elsewhere; F10.20 Alcohol dependence, uncomplicated; D72.829 Elevated white blood cell count, unspecified; E87.6 Hypokalemia; F12.90 Cannabis use, unspecified, uncomplicated; F10.21 Alcohol dependence, in remission; J45.909 Unspecified asthma, uncomplicated; Z82.49 Family history of ischemic heart disease and other diseases of the circulatory system; Z87.891 Personal history of nicotine dependence; Z98.51 Tubal ligation status; Z68.22 Body mass index [BMI] 22.0-22.9, adult
CPT/HCPCS: 36415; 49083; 76705; 80053; 81001; 82105; 82140; 83690; 85025; 85610; 87071; 87075; 88112; 88305; 89050; 93976; 96374; 96375; 99285; C1892; C9113; J1170; J2405; J2543; J3010; J3490; J7030; P9046; G0378